=== PATIENT | male | born 1995 | race Hispanic/Latino ===

== ENCOUNTER 2018-03-05 01:24 | Emergency (ER) | payer SELFPAY ==
[2018-03-05] MEDS ORDERED: METHYLPREDNISOLONE 125 MG INJ ONE (01:38)
--- NOTE | 2018-03-05 02:45 | EDPHYS ---
Physician Documentation [facility] Name: Jenaro Smith Age: 22 yrs Sex: Male : 1995 Arrival Date: 03/05/2018 Time: 01:26 Bed 5 Private MD: ED Physician Douglas De Paz HPI: 03/05 02:23 This 22 yrs old Male presents to ER via Ambulatory with complaints of Rash. rn 02:23 The patient's rash thought to be caused by an unknown cause. The rash is located on the rn body diffusely. Onset: The symptoms/episode began/occurred today. Severity of symptoms: At their worst the symptoms were mild in the emergency department the symptoms are unchanged. The patient has experienced a previous episode. The patient has not recently seen a physician. Reports hives that popped up today, had similar symptoms a week ago, went away with benadryl, no new exposure to anything.. Historical: - Allergies: 01:36 No Known Allergies; ak1 - Home Meds: 01:36 None [Active]; ak1 - PMHx: 01:36 None; ak1 - PSHx: 01:36 None; ak1 - Immunization history:: Adult Immunizations unknown. - Social history:: Smoking status: unknown. - Ebola Screening: : No symptoms or risks identified at this time. - Family history:: not pertinent. - Hospitalizations: : No recent hospitalization is reported. ROS: 02:23 Constitutional: Negative for fever, chills, and weight loss, Eyes: Negative for injury, rn pain, redness, and discharge, Neck: Negative for injury, pain, and swelling, Cardiovascular: Negative for chest pain, palpitations, and edema, Respiratory: Negative for shortness of breath, cough, wheezing, and pleuritic chest pain, Abdomen/GI: Negative for abdominal pain, nausea, vomiting, diarrhea, and constipation, Back: Negative for injury and pain, MS/Extremity: Negative for injury and deformity, Skin: + hives Neuro: Negative for headache, weakness, numbness, tingling, and seizure. Exam: 02:23 Constitutional: This is a well developed, well nourished patient who is awake, alert, rn and in no acute distress. Head/Face: Normocephalic, atraumatic. Eyes: Pupils equal round and reactive to light, extra-ocular motions intact. Lids and lashes normal. Conjunctiva and sclera are non-icteric and not injected. Cornea within normal limits. Periorbital areas with no swelling, redness, or edema. ENT: No oral swelling or lesions Neck: Trachea midline, no thyromegaly or masses palpated, and no cervical lymphadenopathy. Supple, full range of motion without nuchal rigidity, or vertebral point tenderness. No Meningismus. Cardiovascular: Regular rate and rhythm with a normal S1 and S2. No gallops, murmurs, or rubs. Normal PMI, no JVD. No pulse deficits. Respiratory: Lungs have equal breath sounds bilaterally, clear to auscultation and percussion. No rales, rhonchi or wheezes noted. No increased work of breathing, no retractions or nasal flaring. Abdomen/GI: Soft, non-tender, with normal bowel sounds. No distension or tympany. No guarding or rebound. No evidence of tenderness throughout. Skin: + diffuse urticaria, no bullae, no desquamation MS/ Extremity: Pulses equal, no cyanosis. Neurovascular intact. Full, normal range of motion. Equal circumference. Neuro: Awake and alert, GCS 15, oriented to person, place, time, and situation. Cranial nerves II-XII grossly intact. Motor strength 5/5 in all extremities. Sensory grossly intact. Cerebellar exam normal. Normal gait. Vital Signs: 01:35 BP 172 / 88; Pulse 105; Resp 18; Temp 98.7(O); Pulse Ox 99% on R/A; Weight 58.97 kg ak1 (R); Height 5 ft. 9 in. (175.26 cm) (R); Pain 7/10; 02:45 BP 116 / 65; Pulse 74; Resp 18; Pulse Ox 99% on R/A; tl2 01:35 Body Mass Index 19.20 (58.97 kg, 175.26 cm) ak1 MDM: 01:30 Patient medically screened. rn 02:43 Differential diagnosis: allergic reaction. Data reviewed: vital signs, nurses notes, rn and as a result, I will discharge patient. Counseling: I had a detailed discussion with the patient and/or guardian regarding: the historical points, exam findings, and any diagnostic results supporting the discharge/admit diagnosis, the need for outpatient follow up, to return to the emergency department if symptoms worsen or persist or if there are any questions or concerns that arise at home. Response to treatment: the patient's symptoms have mildly improved after treatment, and as a result, I will discharge patient. Special discussion: I discussed with the patient/guardian in detail that at this point there is no indication for admission to the hospital. It is understood, however, that if the symptoms persist or worsen the patient needs to return immediately for re-evaluation. Administered Medications: 01:43 Drug: SOLU-Medrol 125 mg Route: IM; Site: right deltoid; tl2 02:45 Follow up: Response: No adverse reaction ak1 01:43 Not Given (Patient Refused; Pt has no ride home): Benadryl 50 mg IM once tl2 Disposition: 03/05/18 02:44 Discharged to Home. Impression: Urticaria, unspecified. - Condition is Stable. - Discharge Instructions: Hives. - Prescriptions for Prednisone 20 mg Oral Tablet - take 3 tablet by ORAL route once daily for 5 days; 15 tablet. - Medication Reconciliation Form, Thank You Letter, Antibiotic Education, Prescription Opioid Use form. - Follow up: Private Physician; When: As needed; Reason: Recheck today's complaints, Re-evaluation by your physician. - Problem is new. - Symptoms have improved. Signatures: Douglas De Paz MD MD rn Krenek, Amber, RN RN ak1 Asmita North RN RN tl2 Corrections: (The following items were deleted from the chart) 02:49 02:44 03/05/2018 02:44 Discharged to Home. Impression: Urticaria, unspecified. ak1 Condition is Stable. Forms are Medication Reconciliation Form, Thank You Letter, Antibiotic Education, Prescription Opioid Use. Follow up: Private Physician; When: As needed; Reason: Recheck today's complaints, Re-evaluation by your physician. Problem is new. Symptoms have improved. rn
--- NOTE | 2018-03-05 02:45 | ER ---
Nurse's Notes [facility] Name: Jenaro Smith Age: 22 yrs Sex: Male : 1995 Arrival Date: 03/05/2018 Time: 01:26 Bed 5 Private MD: Diagnosis: Urticaria, unspecified Presentation: 03/05 01:35 Presenting complaint: Patient states: rash and itching since midnight. hives noted to ak1 pt right AC, neck and left lower leg. Transition of care: patient was not received from another setting of care. Onset of symptoms was March 05, 2018. Risk Assessment: Do you want to hurt yourself or someone else? Patient reports no desire to harm self or others. Initial Sepsis Screen: Does the patient meet any 2 criteria? No. Patient's initial sepsis screen is negative. Does the patient have a suspected source of infection? No. Patient's initial sepsis screen is negative. Care prior to arrival: None. 01:35 Method Of Arrival: Ambulatory ak1 01:35 Acuity: CHARAN 4 ak1 Triage Assessment: 01:37 General: Appears uncomfortable, Behavior is calm, cooperative. Pain: Complains of pain ak1 in right AC, neck, left lower leg. EENT: No signs and/or symptoms were reported regarding the EENT system. Neuro: No deficits noted. Cardiovascular: No deficits noted. Respiratory: No deficits noted. GI: No signs and/or symptoms were reported involving the gastrointestinal system. : No signs and/or symptoms were reported regarding the genitourinary system. Derm: Rash noted that is itchy, papular, red, raised. Musculoskeletal: No signs and/or symptoms reported regarding the musculoskeletal system. Historical: - Allergies: 01:36 No Known Allergies; ak1 - Home Meds: 01:36 None [Active]; ak1 - PMHx: 01:36 None; ak1 - PSHx: 01:36 None; ak1 - Immunization history:: Adult Immunizations unknown. - Social history:: Smoking status: unknown. - Ebola Screening: : No symptoms or risks identified at this time. - Family history:: not pertinent. - Hospitalizations: : No recent hospitalization is reported. Screenin:37 Abuse screen: Denies threats or abuse. Denies injuries from another. Nutritional ak1 screening: No deficits noted. Tuberculosis screening: No symptoms or risk factors identified. Fall Risk None identified. Assessment: 02:44 Reassessment: Patient appears in no apparent distress at this time. No changes from ak1 previously documented assessment. see triage assessment. Vital Signs: 01:35 BP 172 / 88; Pulse 105; Resp 18; Temp 98.7(O); Pulse Ox 99% on R/A; Weight 58.97 kg ak1 (R); Height 5 ft. 9 in. (175.26 cm) (R); Pain 7/10; 02:45 BP 116 / 65; Pulse 74; Resp 18; Pulse Ox 99% on R/A; tl2 01:35 Body Mass Index 19.20 (58.97 kg, 175.26 cm) ak1 ED Course: 01:26 Patient arrived in ED. ds1 01:30 Douglas De Paz MD is Attending Physician. rn 01:35 Rebecca Caceres RN is Primary Nurse. ak1 01:35 Arm band placed on Patient placed in an exam room, on a stretcher, on pulse oximetry, ak1 Patient notified of wait time. 01:36 Triage completed. ak1 01:38 Patient has correct armband on for positive identification. Call light in reach. Side ak1 rails up X 1. Pulse ox on. NIBP on. 02:44 No provider procedures requiring assistance completed. Patient did not have IV access ak1 during this emergency room visit. Administered Medications: 01:43 Drug: SOLU-Medrol 125 mg Route: IM; Site: right deltoid; tl2 02:45 Follow up: Response: No adverse reaction ak1 01:43 Not Given (Patient Refused; Pt has no ride home): Benadryl 50 mg IM once tl2 Outcome: 02:44 Discharge ordered by . rn 02:45 Condition: good ak1 02:49 Discharged to home ambulatory. ak1 02:49 Discharge instructions given to patient, Instructed on discharge instructions, follow up and referral plans. no drinking with medication, no driving heavy equipment, medication usage, Demonstrated understanding of instructions, follow-up care, medications, Prescriptions given X 1. 02:49 Patient left the ED. ak1 Signatures: Keri Bonner ds1 Douglas De Paz MD MD rn Krenek, Amber, RN RN ak1 Asmita North RN RN tl2
== END 2018-03-05 02:49 | disposition home or self-care (01) ==
LOC: ER 01:24
DX: L50.9 Urticaria, unspecified (principal)
CPT/HCPCS: 96372; 99283; J2930

== ENCOUNTER 2019-01-20 23:01 | Emergency (ER) | payer SELFPAY ==
--- OUTSIDE RECORDS SUMMARY | 2019-01-20 23:03 | XMS REPORT ---
:1995 [facility] Address [address] [place] [address] [address] [place] [address] Care Team Providers Name Role Phone Unavailable Unavailable Unavailable Problems This patient has no known problems. Allergies, Adverse Reactions, Alerts This patient has no known allergies or adverse reactions. Medications This patient has no known medications.
[2019-01-20] MEDS ORDERED: METHYLPREDNISOLONE 125 MG INJ ONE (23:33)
[2019-01-20] MEDS ORDERED: DIPHENHYDRAMINE 50 MG/ML VIAL ONE (23:33)
--- NOTE | 2019-01-21 00:17 | ER ---
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 Transition of care: patient was not received from another setting of care. Onset: The symptoms/episode began/occurred acutely. Anaphylaxis evaluation, no signs or symptoms of anaphylaxis were noted. Onset of symptoms was January 20, 2019. Risk Assessment: Do you want to hurt yourself or someone else? Patient reports no desire to harm self or others. Initial Sepsis Screen: Does the patient meet any 2 criteria?. Care prior to arrival: None. 23:16 Method Of Arrival: Ambulatory ak1 23:16 Acuity: CHARAN 3 ak1 23:56 Initial Sepsis Screen: Does the patient have a suspected source of infection? No. mg2 Patient's initial sepsis screen is negative. Triage Assessment: 23:18 General: Appears uncomfortable, Behavior is calm, cooperative. ak1 Historical: - Allergies: 23:18 No Known Allergies; ak1 - Home Meds: 23:18 None [Active]; ak1 - PMHx: 23:18 None; ak1 - PSHx: 23:18 None; ak1 - Immunization history:: Adult Immunizations up to date. - Social history:: Smoking status: Patient/guardian denies using tobacco. - Ebola Screening: : No symptoms or risks identified at this time. Screenin:55 Abuse screen: Denies threats or abuse. Denies injuries from another. Nutritional mg2 screening: No deficits noted. Tuberculosis screening: No symptoms or risk factors identified. Fall Risk IV access (20 points). Assessment: 23:54 General: Appears in no apparent distress. comfortable, Behavior is calm, cooperative. mg2 Pain: Denies pain. Neuro: Level of Consciousness is awake, alert, obeys commands, Oriented to person, place, time, situation. Cardiovascular: Capillary refill < 3 seconds Patient's skin is warm and dry. Respiratory: Airway is patent Respiratory effort is even, unlabored, Breath sounds are clear bilaterally. in mediastinum, right upper lobe, left upper lobe, right middle lobe, left lower lobe and right lower lobe. GI: No signs and/or symptoms were reported involving the gastrointestinal system. : No signs and/or symptoms were reported regarding the genitourinary system. EENT: lip swelling. Derm: Skin is intact, is healthy with good turgor, Skin is pink, warm \T\ dry. normal, Rash noted that is itchy, red, raised, urticaria. Musculoskeletal: No signs and/or symptoms reported regarding the musculoskeletal system. 01/21 00:41 Reassessment: Patient states feeling better. Patient states symptoms have improved. mg2 Vital Signs: 01/20 23:18 BP 132 / 78; Pulse 117; Resp 20; Temp 97.6; Pulse Ox 97% on R/A; Weight 56.7 kg (R); ak1 Height 5 ft. 2 in. (157.48 cm) (R); Pain 8/10; 23:56 BP 123 / 85; Pulse 110; Resp 18; Pulse Ox 98% on R/A; Pain 0/10; mg2 01/21 00:41 BP 115 / 78; Pulse 75; Resp 17; Pulse Ox 100% on R/A; Pain 0/10; mg2 01/20 23:18 Body Mass Index 22.86 (56.70 kg, 157.48 cm) ak1 ED Course: 01/20 23:04 Patient arrived in ED. am2 23:15 Chris Colby MD is Attending Physician. pkl 23:17 Triage completed. ak1 23:18 Arm band placed on Patient placed in an exam room, Patient notified of wait time. ak1 23:23 Inserted saline lock: 22 gauge in left antecubital area, using aseptic technique. Blood jb5 collected. 23:37 Ismael Estrella, JAJA is Primary Nurse. mg2 23:55 Patient has correct armband on for positive identification. Pulse ox on. NIBP on. Door mg2 closed. 23:56 No provider procedures requiring assistance completed. mg2 01/21 00:42 IV discontinued, intact, bleeding controlled, No redness/swelling at site. Pressure mg2 dressing applied. Administered Medications: 01/20 23:25 Drug: SOLU-Medrol 125 mg Route: IVP; Site: left antecubital; ak1 01/21 00:41 Follow up: Response: No adverse reaction; Marked relief of symptoms mg2 01/20 23:25 Drug: Benadryl 50 mg Route: IVP; Site: left antecubital; ak1 01/21 00:41 Follow up: Response: No adverse reaction; Marked relief of symptoms mg2 Outcome: 00:16 Discharge ordered by . piper 00:42 Discharged to home ambulatory, with family. mg2 00:42 Condition: stable 00:42 Discharge instructions given to patient, family, Instructed on discharge instructions, follow up and referral plans. medication usage, Demonstrated understanding of instructions, follow-up care, medications, Prescriptions given X 1. 00:42 Patient left the ED. mg2 Signatures: Chris Colby MD MD pkl Rebecca Caceres, RN RN ak1 Idania Kay Amanda am2 Gardose, Michele, RN RN mg2
--- NOTE | 2019-01-21 00:17 | EDPHYS ---
Physician Documentation [facility] Name: Jenaro Smith Age: 23 yrs Sex: Male : 1995 Arrival Date: 01/20/2019 Time: 23:04 Bed 27 Private MD: ED Physician Chris Colby HPI: 01/20 23:27 This 23 yrs old Male presents to ER via Ambulatory with complaints of Allergic pkl Reaction, Lips Swelling, Headache, Runny Nose, Fever. 23:27 The patient presents with itching, rash, that is diffuse, swelling of the lips. Onset: pkl The symptoms/episode began/occurred just prior to arrival, 1 hour(s) ago. Associated signs and symptoms: Pertinent positives: hives. Historical: - Allergies: 23:18 No Known Allergies; ak1 - Home Meds: 23:18 None [Active]; ak1 - PMHx: 23:18 None; ak1 - PSHx: 23:18 None; ak1 - Immunization history:: Adult Immunizations up to date. - Social history:: Smoking status: Patient/guardian denies using tobacco. - Ebola Screening: : No symptoms or risks identified at this time. ROS: 23:27 Eyes: Negative for injury, pain, redness, and discharge. pkl 23:27 ENT: Positive for swollen lips. 23:27 Neck: Negative for stiffness. 23:27 Cardiovascular: Negative for chest pain. 23:27 Respiratory: Negative for shortness of breath. 23:27 Abdomen/GI: Negative for abdominal pain, nausea, vomiting, and diarrhea. 23:27 Back: Negative for acute changes. 23:27 : Negative for urinary symptoms. 23:27 MS/extremity: Negative for acute changes. 23:27 Skin: Positive for rash, diffusely. 23:27 Neuro: Negative for altered mental status. Exam: 23:27 Head/Face: Normocephalic, atraumatic. Eyes: Pupils equal round and reactive to light, pkl extra-ocular motions intact. Lids and lashes normal. Conjunctiva and sclera are non-icteric and not injected. Cornea within normal limits. Periorbital areas with no swelling, redness, or edema. 23:27 ENT: Mouth: Lips: swollen. 23:27 Neck: Exam negative for nuchal rigidity. 23:27 Chest/axilla: Exam negative for acute changes. 23:27 Cardiovascular: Rate: tachycardic, actual rate is 112 bpm, Rhythm: regular. 23:27 Respiratory: the patient does not display signs of respiratory distress, Respirations: normal, Breath sounds: are clear throughout. 23:27 Abdomen/GI: Bowel sounds: normal, Palpation: abdomen is soft and non-tender, in all quadrants. 23:27 Back: Exam negative for acute changes. 23:27 : Exam negative for acute changes. 23:27 Musculoskeletal/extremity: Exam is negative for acute changes. 23:27 Skin: urticaria, and is diffusely located. 23:27 Neuro: Orientation: is normal, Mentation: is normal, Cranial nerves: grossly normal, Motor: is normal. Vital Signs: 23:18 BP 132 / 78; Pulse 117; Resp 20; Temp 97.6; Pulse Ox 97% on R/A; Weight 56.7 kg (R); ak1 Height 5 ft. 2 in. (157.48 cm) (R); Pain 8/10; 23:56 BP 123 / 85; Pulse 110; Resp 18; Pulse Ox 98% on R/A; Pain 0/10; mg2 04 00:41 BP 115 / 78; Pulse 75; Resp 17; Pulse Ox 100% on R/A; Pain 0/10; mg2 04 23:18 Body Mass Index 22.86 (56.70 kg, 157.48 cm) ak1 MDM: 01/20 23:15 Patient medically screened. pkl 01/21 00:15 Data reviewed: vital signs, nurses notes. pkl 01/20 23:19 Order name: Saline Lock; Complete Time: 23:25 pkl Administered Medications: 01/20 23:25 Drug: SOLU-Medrol 125 mg Route: IVP; Site: left antecubital; ak1 01/21 00:41 Follow up: Response: No adverse reaction; Marked relief of symptoms mg2 01/20 23:25 Drug: Benadryl 50 mg Route: IVP; Site: left antecubital; ak1 01/21 00:41 Follow up: Response: No adverse reaction; Marked relief of symptoms mg2 Disposition: 01/21/19 00:16 Discharged to Home. Impression: Acute allergic reaction. - Condition is Stable. - Medication Reconciliation Form, Thank You Letter, Antibiotic Education, Prescription Opioid Use form. - Follow up: Private Physician; When: 2 - 3 days; Reason: Re-evaluation by your physician. - Problem is new. - Symptoms have improved. Signatures: Chris Colby MD MD pkl Rebecca Caceres, RN RN ak1 Ismael Estrella RN RN mg2 Corrections: (The following items were deleted from the chart) 00:42 00:16 01/21/2019 00:16 Discharged to Home. Impression: Acute allergic reaction. mg2 Condition is Stable. Forms are Medication Reconciliation Form, Thank You Letter, Antibiotic Education, Prescription Opioid Use. Follow up: Private Physician; When: 2 - 3 days; Reason: Re-evaluation by your physician. Problem is new. Symptoms have improved. pkl
== END 2019-01-21 00:42 | disposition home or self-care (01) ==
LOC: ER 23:01
DX: T78.40XA Allergy, unspecified, initial encounter (principal); R21 Rash and other nonspecific skin eruption; L29.9 Pruritus, unspecified
CPT/HCPCS: 96374; 96375; 99284; J2930

== ENCOUNTER 2025-02-03 03:33 | Emergency (ER) | payer SELFPAY ==
--- OUTSIDE RECORDS SUMMARY | 2025-02-03 03:38 | XMS REPORT | Continuity of Care Document ---
Author Name Unknown Address [address] [facility] [address] [place] [address] Organization [facility] Address [address] [facility] [address] [place] [address] Care Team Providers Care Segment Producer Name Role Phone Pcp, Patient Does Not Have A Primary Care Physic jose ramon DONALD WONG Attending Clinician Unavailable DONALD WONG Attending Clinician Unavailable Donald Aaron Attending Clinician [phone] HEATHER PETERS Attending Clinician Unavailable HEATHER PETERS Attending Clinician Unavailable GLORIA CARROLL Attending Clinician Unavailab GLORIA Marie Attending Clinician Unavailab SHANNEN Valles Attending Clinician Unavailable Shannen Reyes MD Attending Clinician [phone] LISA SIMMS Attending Clinician Unavailab Lisa Cadena DO Attending Clinician [phone] ALFRED BURGER Attending Clinician Unavaila Alfred Reeves Attending Clinician [phone] Lab, Adc Fam Pob I Attending Clinician Unavailab Pita Garcia Attending Clinician [phone] PITA CATES Attending Clinician Unavailable Doctor Unassigned, [place] Attending Clinician U navailable HEATHER PETERS Admitting Clinician Unavailable SHANNEN REYES Admitting Clinician Unavailable ALFRDE BURGER Admitting Clinician Unavaila ble Payers Payer Name Policy Type Policy Number Effective Date Expirati on Date Source MEDICAID ALIEN PENDING PENDING 1998 00:00:00 1998 00:00:00 Problems Condition Name Condition Details Condition Category Status Onset Date Resolution Date Last Treatment Date Treating Clinician Comments Source No known active problems No known active problems Disease [facility] Allergies, Adverse Reactions, Alerts Allergy Name Allergy Type Status Severity Reaction(s) Onset Date Inactive Date Treating Clinician Comments Source NO KNOWN ALLERGIE S Drug Class Active [facility] Social History Social Habit Start Date Stop Date Quantity Comments Source Sexual orientation U [facility] Exposure to SARS-CoV-2 (event) 2022-11-14 00:00:00 2022-11-24 02:03:00 Unable to assess [facility] Sex assigned at 1995 00:00:00 1995 00:00:00 [facility] Smoking Status Start Date Stop Date Source Tobacco smoking consumption unknown [facility] Medications Ordered Medication Name Filled Medication Name Start Date Stop Date Current Medication? Ordering Clinician Indication Dosage Frequency Signature (SIG) Comments Components Source famotidine (PEPCID AC) tablet 20 mg 12-06 07:00: 00 12-06 07:19 :00 No 20mg 20 mg, Oral, ONCE, 1 dose, On 12/06/24 at 0100, [facility] predniSONE (DELTASONE) tablet 50 mg 12-06 07:00: 00 12-06 07:19 :00 No 50mg 50 mg, Oral, ONCE, 1 dose, On 12/06/24 at 0100, [facility] diphenhydrA MINE (BENADRYL) tablet 50 mg 12-06 07:00: 00 12-06 07:19 :00 No 50mg 50 mg, Oral, ONCE, 1 dose, On 12/06/24 at 0100, [facility] predniSONE 50 mg tablet 12-06 00:00: 00 12-11 05:59 :00 Yes [id number] 50mg Take 1 tablet by mouth in the morning for 4 days. [facility] ibuprofen 800 mg tablet 03-29 00:00: 00 Yes [id number] 800mg Take 1 tablet by mouth every 8 (eight) hours as needed for Pain (scale 4-6). [facility] NaCl 0.9% (NS) IV infusion 500 mL 01-06 12:00: 00 Yes 500mL at 999 mL/hr, Intravenou s, CONTINUOUS , Starting on Sat01/07/24 at 0700, Until Discontinu ed, Routine [facility] iopamidol (ISOVUE 370-500 mL) injection 100 mL 01-06 12:00: 00 01-06 12:00 :00 No [id number] 100mL 100 mL, Intravenou s, ONCE, 1 dose, On Sat01/07/24 at 0700, Routine [facility] NaCl 0.9% (NS) IV infusion 1,000 mL 01-06 10:45: 00 Yes 1000mL at 999 mL/hr, Intravenou s, CONTINUOUS , Starting on Sat01/07/24 at 0545, Until Discontinu ed, Routine [facility] ketorolac (TORADOL) injection 30 mg 01-06 10:45: 00 01-06 09:51 :00 No 30mg 30 mg, Slow IV Push, ONCE, 1 dose, On Sat01/07/24 at 0545, Routine [facility] ondansetron (ZOFRAN (PF)) injection 4 mg 01-06 09:45: 00 01-06 09:52 :00 No 4mg 4 mg, Slow IV Push, ONCE, 1 dose, On Sat01/07/24 at 0445, SUSHMA [facility] amoxicillin -clavulanat e 875-125 mg per tablet 01-06 00:00: 00 Yes [id number] 1{tbl} Take 1 tablet by mouth every 12 (twelve) hours. [facility] ibuprofen 800 mg tablet 01-06 00:00: 00 Yes [id number] 800mg Take 1 tablet by mouth every 8 (eight) hours as needed for Temp > 38.5 C or Pain (scale 4-6). [facility] NaCl 0.9% (NS) IV infusion 1,000 mL 01-04 18:30: 00 Yes 1000mL at 999 mL/hr, Intravenou s, CONTINUOUS , Starting on 01/05/24 at 1330, Until Discontinu ed, Routine [facility] acetaminoph en (TYLENOL) tablet 1,000 mg 01-04 18:30: 00 01-04 17:39 :00 No 1000mg 1,000 mg, Oral, ONCE, 1 dose, On 01/05/24 at 1330, Routine [facility] iopamidol (ISOVUE 370-500 mL) injection 65 mL 2022-10 07:15: 00 08-17 07:15 :00 No [id number] 65mL 65 mL, Intravenou s, ONCE, 1 dose, On 08/17/23 at 0115, Routine [facility] dicyclomine 20 mg tablet 11-24 00:00: 00 Yes [id number] 20mg Take 1 tablet by mouth 4 (four) times daily. [facility] docusate sodium 250 mg capsule 11-24 00:00: 00 Yes [id number] 250mg Take 1 capsule by mouth in the morning. [facility] clotrimazol e (LOTRIMIN AF, CLOTRIMAZOL E,) 1 % topical cream 11-24 00:00: 00 Yes [id number] Apply to area(s) at bedtime. [facility] polyethylen e glycol 3350 (MIRALAX) 17 gram powder 11-24 00:00: 00 Yes [id number] 1{packe t} Take 1 Packet by mouth every 24 (twenty-fo ur) hours as needed for Constipati on. [facility] ondansetron 4 mg disintegrat ing tablet 11-24 00:00: 00 Yes [id number] 4mg Take 1 tablet by mouth every 4 (four) hours as needed for Nausea and Vomiting (N/V). [facility] NaCl 0.9% (NS) bolus infusion 1,000 mL 04-19 20:00: 00 04-19 19:51 :00 No 1000mL at 999 mL/hr, 1,000 mL, IV Infusion, ONCE, 1 dose, On Sat04/19/22 at 1500, SUSHMA [facility] ibuprofen (IBU) tablet 600 mg 04-19 19:15: 00 04-19 19:16 :00 No 600mg 600 mg, Oral, ONCE, 1 dose, On Sat04/19/22 at 1415, SUSHMA [facility] iopamidol (ISOVUE 370-500 mL) injection 100 mL 12-13 08:00: 00 12-13 06:45 :00 No [id number] 100mL 100 mL, Intravenou s, ONCE, 1 dose, On Sat12/13/21 at 0200, Routine [facility] dexamethaso ne (DECADRON PHOSPHATE) injection 10 mg 12-13 07:00: 00 12-13 06:19 :00 No 10mg 10 mg, Oral, ONCE, 1 dose, On Sat12/13/21 at 0100, Routine [facility] ketorolac (TORADOL) injection 30 mg 12-13 07:00: 00 12-13 06:19 :00 No 30mg 30 mg, Slow IV Push, ONCE, 1 dose, On Sat12/13/21 at 0100, Routine
pricing/signage team member approving Restricted medication : ALFRED BURGER [facility] maalox:diph enhydrAMINE :lidocaine 2 % viscous 1:1:1 (FIRST-MOUT HWASH BLM) oral suspension 15 mL 12-13 07:00: 00 12-13 06:19 :00 No 15mL 15 mL, Oral, ONCE, 1 dose, On Sat12/13/21 at 0100, Routine [facility] ibuprofen 800 mg tablet 2022-0 3-09 00:00: 00 Yes [id number] 800mg Take 1 tablet by mouth every 6 (six) hours as needed for Pain (scale 4-6). [facility] No known medications No Un derek [facility] No known medications No Un derek [facility] Vital Signs Vital Name Observation Time Observation Value Comments S alannah Systolic blood pressure 2024-12-06 08:00:00 123 mm[Hg] [facility] Diastolic blood pressure 2024-12-06 08:00:00 78 mm[Hg] [facility] Heart rate 2024-12-06 08:00:00 82 /min Un[facility] Respiratory rate 2024-12-06 08:00:00 16 /min [facility] Oxygen saturation in Arterial blood by Pulse oximetry 2024-12-06 08:00:00 97 /min [facility] Body temperature 2024-12-06 06:41:00 36.72 Brooke [facility] Body height 2024-12-06 06:41:00 160 cm [facility] Body weight 2024-12-06 06:41:00 61.236 kg [facility] BMI 2024-12-06 06:41:00 23.91 kg/m2 [facility] Systolic blood pressure 2024-03-30 05:10:00 113 mm[Hg] [facility] Diastolic blood pressure 2024-03-30 05:10:00 76 mm[Hg] [facility] Heart rate 2024-03-30 05:10:00 77 /min Un[facility] Body temperature 2024-03-30 05:10:00 37 Brooke [facility] Respiratory rate 2024-03-30 05:10:00 16 /min [facility] Oxygen saturation in Arterial blood by Pulse oximetry 2024-03-30 05:10:00 100 /min [facility] Body height 2024-03-30 02:38:00 177.8 cm [facility] Body weight 2024-03-30 02:38:00 61.236 kg [facility] BMI 2024-03-30 02:38:00 19.37 kg/m2 [facility] Systolic blood pressure 2024-01-07 13:00:00 112 mm[Hg] [facility] Diastolic blood pressure 2024-01-07 13:00:00 74 mm[Hg] [facility] Heart rate 2024-01-07 13:00:00 83 /min Un[facility] Respiratory rate 2024-01-07 13:00:00 13 /min [facility] Oxygen saturation in Arterial blood by Pulse oximetry 2024-01-07 13:00:00 95 /min [facility] Body temperature 2024-01-07 10:45:00 37.17 Brooke [facility] Body height 2024-01-07 09:15:00 160 cm [facility] Body weight 2024-01-07 09:15:00 61.508 kg [facility] BMI 2024-01-07 09:15:00 24.02 kg/m2 [facility] Systolic blood pressure 2024-01-05 18:51:04 118 mm[Hg] [facility] Diastolic blood pressure 2024-01-05 18:51:04 88 mm[Hg] [facility] Heart rate 2024-01-05 18:51:04 108 /[facility] Body temperature 2024-01-05 18:51:04 38.11 Brooke [facility] Respiratory rate 2024-01-05 18:51:04 16 /min [facility] Oxygen saturation in Arterial blood by Pulse oximetry 2024-01-05 18:51:04 100 /min [facility] Body height 2024-01-05 17:00:00 160 cm [facility] Body weight 2024-01-05 17:00:00 56.7 kg [facility] BMI 2024-01-05 17:00:00 22.14 kg/m2 [facility] Systolic blood pressure 2023-08-17 07:00:00 119 mm[Hg] [facility] Diastolic blood pressure 2023-08-17 07:00:00 79 mm[Hg] [facility] Heart rate 2023-08-17 07:00:00 98 /min Un[facility] Respiratory rate 2023-08-17 07:00:00 16 /min [facility] Oxygen saturation in Arterial blood by Pulse oximetry 2023-08-17 07:00:00 99 /min [facility] Body temperature 2023-08-17 04:56:00 36.61 Brooke [facility] Body height 2023-08-17 04:56:00 160 cm [facility] Body weight 2023-08-17 04:56:00 58.968 kg [facility] BMI 2023-08-17 04:56:00 23.03 kg/m2 [facility] Oxygen saturation in Arterial blood by Pulse oximetry 2022-11-24 09:00:00 99 /min [facility] Systolic blood pressure 2022-11-24 08:15:00 133 mm[Hg] [facility] Diastolic blood pressure 2022-11-24 08:15:00 92 mm[Hg] [facility] Heart rate 2022-11-24 08:15:00 112 /min [facility] Body temperature 2022-11-24 08:15:00 36.5 Brooke [facility] Respiratory rate 2022-11-24 08:15:00 20 /min [facility] Body height 2022-11-24 08:15:00 165.1 cm [facility] Body weight 2022-11-24 08:15:00 57.607 kg [facility] BMI 2022-11-24 08:15:00 21.13 kg/m2 [facility] Heart rate 2022-04-19 19:00:00 135 /min [facility] Body temperature 2022-04-19 19:00:00 39.67 Brooke [facility] Oxygen saturation in Arterial blood by Pulse oximetry 2022-04-19 19:00:00 100 /min [facility] Systolic blood pressure 2022-04-19 18:37:00 136 mm[Hg] [facility] Diastolic blood pressure 2022-04-19 18:37:00 77 mm[Hg] [facility] Respiratory rate 2022-04-19 18:37:00 18 /min [facility] Body height 2022-04-19 18:37:00 165.1 cm [facility] Body weight 2022-04-19 18:37:00 63.504 kg [facility] BMI 2022-04-19 18:37:00 23.30 kg/m2 [facility] Systolic blood pressure 2021-12-13 07:43:00 114 mm[Hg] [facility] Diastolic blood pressure 2021-12-13 07:43:00 80 mm[Hg] [facility] Heart rate 2021-12-13 07:43:00 102 /min [facility] Respiratory rate 2021-12-13 07:43:00 16 /min [facility] Oxygen saturation in Arterial blood by Pulse oximetry 2021-12-13 07:43:00 99 /min [facility] Body temperature 2021-12-13 05:39:00 36.33 Brooke [facility] Body height 2021-12-13 05:39:00 165.1 cm [facility] Body weight 2021-12-13 05:39:00 54.432 kg [facility] BMI 2021-12-13 05:39:00 19.97 kg/m2 [facility] Procedures Procedure Date / Time Performed Performing Clinician Source LIPASE 2024-03-30 03:18:00 Heather Peters [facility] TROPONIN I 2024-03-30 03:18:00 Heather Peters [facility] COMP. METABOLIC PANEL ([id number]) 2024-03-30 03:18:00 Heather Peters [facility] CBC WITH DIFF 2024-03-30 03:18:00 Heather Peters [facility] XR CHEST 1 VW 2024-03-30 03:10:[address] [facility] [address] ABDOMEN PELVIS W CONTRAST 2024-01-07 11:12:29 Heather Peters [facility] XR CHEST 1 VW 2024-01-07 10:01:23 Heather Peters [facility] BLOOD CULTURE SCREEN 2024-01-07 09:49:00 Geeta Peters i [facility] EBV-MONONUCLEOSIS SCREEN 2024-01-07 09:49:00 Heather Peters [facility] RAPID STREP SCREEN FOR GROUP A 2024-01-07 09:49:00 Heather Peters [facility] RAPID INFLUENZA A/B 2024-01-07 09:49:00 Heather Peters [facility] COVID-19 (ID NOW RAPID TESTING) 2024-01-07 09:49:00 Heather Peters [facility] LACTIC ACID WHOLE BLOOD 2024-01-07 09:48:00 Shelli Peters [facility] URINALYSIS 2024-01-07 09:44:00 Heather Peters [facility] BLOOD CULTURE SCREEN 2024-01-07 09:43:00 Geeta Peters i [facility] COMP. METABOLIC PANEL ([id number]) 2024-01-07 09:43:00 Heather Peters [facility] CBC WITH DIFF 2024-01-07 09:43:00 Heather [facility] BASIC METABOLIC PANEL (NA, K, CL, CO2, GLUCOSE, BUN, CREATININE, CA) 2024-01-05 17:35:00 Heather Peters [facility] CBC WITH DIFF 2024-01-05 17:35:00 Heather [facility] RAPID INFLUENZA A/B 2024-01-05 17:35:00 Heather Peters [facility] COVID-19 (ID NOW RAPID TESTING) 2024-01-05 17:35:00 Heather Peters [facility] CT ABDOMEN PELVIS W CONTRAST 2023-08-17 06:22:41 Gloria Carroll [facility] LIPASE 2023-08-17 05:55:00 Gloria Carroll Un [facility] COMP. METABOLIC PANEL ([id number]) 2023-08-17 05:55:00 Gloria Carroll [facility] CBC WITH DIFF 2023-08-17 05:55:00 Gloria Carroll U [facility] PROTHROMBIN TIME / INR 2023-08-17 05:55:00 Gloria Carroll [facility] ACTIVATED PARTIAL THRMPLAS PIYUSH 2023-08-17 05:55:00 Gloria Carroll [facility] URINALYSIS 2023-08-17 05:55:00 Gloria Carroll [facility] NOTICE OF PRIVACY PRACTICES 2023-08-17 04:34:51 Doctor Unassigned, [place] [facility] CONSENT/REFUSAL FOR DIAGNOSIS AND TREATMENT 2023-08-17 04:29:57 Doctor Unassigned, [place] [facility] XR ABDOMEN ACUTE SERIES 2022-11-24 08:47:42 Do galo Reyes [facility] URINALYSIS 2022-11-24 08:25:00 [facility] LIPASE 2022-11-24 08:23:00 Shannen Reyes [facility] COMP. METABOLIC PANEL ([id number]) 2022-11-24 08:23:00 Shannen Reyes [facility] CBC WITH DIFF 2022-11-24 08:23:00 Shannen Reyes [facility] NOTICE OF PRIVACY PRACTICES 2022-11-24 08:05:53 Doctor Unassigned, [place] [facility] CONSENT/REFUSAL FOR DIAGNOSIS AND TREATMENT 2022-11-24 08:05:19 Doctor Unassigned, [place] [facility] COVID-19 (ID NOW RAPID TESTING) 2022-04-19 18:45:00 Lisa Simms [facility] CONSENT/REFUSAL FOR DIAGNOSIS AND TREATMENT 2022-04-19 18:31:11 Doctor Unassigned, [place] [facility] CT SOFT TISSUE NECK W CONTRAST 2021-12-13 06:46:00 Alfred Burger [facility] RAPID STREP SCREEN FOR GROUP A 2021-12-13 06:19:00 Alfred Burger [facility] BASIC METABOLIC PANEL (NA, K, CL, CO2, GLUCOSE, BUN, CREATININE, CA) 2021-12-13 06:18:00 Alfred Burger [facility] CBC WITH DIFF 2021-12-13 06:18:00 Alfred Burger [facility] EBV-MONONUCLEOSIS SCREEN 2021-12-13 06:18:00 Alfred Burger [facility] NOTICE OF PRIVACY PRACTICES 2021-12-13 05:30:00 Doctor Unassigned, [place] [facility] CONSENT/REFUSAL FOR DIAGNOSIS AND TREATMENT 2021-12-13 05:29:37 Doctor Unassigned, [place] [facility] Encounters Start Date/Time End Date/Time Encounter Type Admission Type Attending [facility] Care Facility Care Department Encounter ID Source 2024-12-06 00:53:00 2024-12-06 02:30:00 Emergency DONALD CRISTOBAL ERICCA [facility] ERT [id number] [facility] 2024-12-06 00:53:00 2024-12-06 02:30:00 Emergency Donald Wong [facility] 1..840.114 350.1.13.10 4.2.7.2.686 [id number] [facility] 2024-03-29 21:42:00 2024-03-30 00:18:00 Emergency X HEATHER PETERS WAKILI [facility] ERT [id number] [facility] 2024-03-29 21:42:00 2024-03-30 00:18:00 Emergency Heather Peters [facility] 1..840.114 350.1.13.10 4.2.7.2.686 [id number] [facility] 2024-01-07 04:19:00 2024-01-07 08:09:00 Emergency X HEATHER PETERS WAKILI [facility] ERT [id number] [facility] 2024-01-07 04:19:00 2024-01-07 08:09:00 Emergency Heather Peters [facility] 1.2.840.114 350.1.13.10 4.2.7.2.686 [id number] [facility] 2024-01-05 12:02:00 2024-01-05 14:31:00 Emergency X HEATHER PETERS WAKILI [facility] ERT [id number] [facility] 2024-01-05 12:02:00 2024-01-05 14:31:00 Emergency Heather Peters [facility] 1.2.840.114 350.1.13.10 4.2.7.2.686 [id number] [facility] 2023-08-16 23:01:00 2023-08-17 01:23:00 Emergency X GLORIA CARROLL LYNDA [facility] ERT [id number] [facility] 2023-08-16 23:01:00 2023-08-17 01:23:00 Emergency Gloria Carroll [facility] 1.2.840.114 350.1.13.10 4.2.7.2.686 [id number] [facility] 2022-11-24 02:07:00 2022-11-24 03:35:00 Emergency X SHANNEN REYES [facility] ERT [id number] [facility] 2022-11-24 02:07:00 2022-11-24 03:35:00 Emergency Shannen Reyes [facility] 1.2.840.114 350.1.13.10 4.2.7.2.686 [id number] [facility] 2022-04-19 13:43:00 2022-04-19 14:52:00 Emergency X LISA SIMMS [facility] ERT [id number] [facility] 2022-04-19 13:43:00 2022-04-19 14:52:00 Emergency Lisa Simms [facility] 1.20.114 350.1.13.10 4.2.7.2.686 [id number] [facility] 2021-12-12 23:43:00 2021-12-13 01:47:00 Emergency X ALFRED BURGER [facility] ERT [id number] [facility] 2021-12-12 23:43:00 2021-12-13 01:47:00 Emergency Alfred Burger F [facility] 1.0.114 350.1.13.10 4.2.7.2.686 [id number] [facility] 2020-10-12 17:10:50 2020-10-12 17:30:50 Laboratory Only Lab, Adc Fam Pob I Pita Cates [facility] [address] 1..114 350.1.13.10 4.2.7.2.686 [id number] [facility] 2020-10-12 17:20:00 2020-10-12 17:20:00 Outpatient R PITA CATES [facility] [id number] [facility] 2020-10-12 00:00:00 2020-10-12 00:00:00 Letter (Out) Doctor Unassigned, [place] [facility] 1..114 350.1.13.10 4.2.7.2.686 [id number] [facility] 2020-10-12 00:00:00 2020-10-12 00:00:00 Letter (Out) Doctor Unassigned, [place] [facility] 1.0114 350.1.13.10 4.2.7.2.686 [id number] [facility] Results Test Description Test Time Test Comments Results Result Co mments Source [facility] ([id number][facility]2024-03-30 04:01:24* Test Item Value Reference Range Interpretation Comme nts NA (test code = 4517310753) 140 mmol/L 135-145 K (test code = 4678897469) 4.0 mmol/L 3.5-5.0 CL (test code = 7899873573) 105 mmol/L 98-108 CO2 TOTAL (test code = 8229786897) 27 mmol/L 23-31 AGAP (test code = 2353985863) 8 2-16 BUN (test code = 0704927746) 16 mg/dL 7-23 GLUCOSE (test code = 1331971910) 92 mg/dL 70-110 CREATININE (test code = 2160-0) 0.77 mg/dL 0.60-1.25 TOTAL BILI (test code = 0287276294) 0.4 mg/dL 0.1-1.1 CALCIUM (test code = 6844740242) 9.0 mg/dL 8.6-10.6 T PROTEIN (test code = 0375626380) 8.0 g/dL 6.3-8.2 ALBUMIN (test code = 1501716335) 4.5 g/dL 3.5-5.0 ALK PHOS (test code = 0136622053) 105 U/L 34-122 ALTv (test code = 1742-6) 71 U/L 5-50 H AST(SGOT) (test code = 2328989614) 47 U/L 13-40 H eGFR (test code = 01464-1) 125.8 mL/min/1.73m2 CKD-EPI eGFR (2020). Assuming creatinine has been stable day-to-day for at least three months, the eGFR indicates Category G1 (>= 90 mL/min/1.73 m2) Lab Interpretation (test code = 82259-6) [facility]* Test Item Value Reference Range Interpretation Comme nts LIPASE (test code = 3682845851) 85 U/L 0-220 Lab Interpretation (test cod e = 77232-4) Normal [facility] with [id number] 03:46:06* Test Item Value Reference Range Interpretation Comme nts WBC (test code = 6690-2) 6.31 4.20-10.70 RBC (test code = 789-8) 4.95 4.26-5.52 HGB (test code = 718-7) 13.7 g/dL 12.2-16.4 HCT (test code = 4544-3) 41.9 % 38.4-49.3 MCV (test code = 787-2) 84.6 fL 81.7-95.6 MCH (test code = 785-6) 27.7 pg 26.1-32.7 MCHC (test code = 786-4) 32.7 g/dL 31.2-35.0 RDW-SD (test code = 16650-3) 40.7 fL 38.5-51.6 RDW-CV (test code = 788-0) 13.2 % 12.1-15.4 PLT (test code = 777-3) 220 150-328 MPV (test code = 35456-6) 10.5 fL 9.8-13.0 NRBC/100 WBC (test code = 9797431064) 0.0 0.0-10.0 NRBC x10^3 (test code = 3693794254) See_Comment [Automated messa ge] The system which generated this result transmitted reference range: 10*3/?L. The reference range was not used to interpret this result as normal/abnormal. GRAN MAT (NEUT) % (test code = 770-8) 41.5 % IMM GRAN % (test code = 7061518534) 0.20 % LYMPH % (test code = 736-9) 37.7 % MONO % (test code = 5905-5) 9.5 % EOS % (test code = 713-8) 10.5 % BASO % (test code = 706-2) 0.6 % GRAN MAT x10^3(ANC) (test code = 2212071230) 2.62 10*3/uL 1.99-6.95 IMM GRAN x10^3 (test code = 3937224624) 0.00-0.06 LYMPH x10^3 (test code = 731-0) 2.38 10*3/uL 1.09-3.23 MONO x10^3 (test code = 742-7) 0.60 10*3/uL 0.36-1.02 EOS x10^3 (test code = 711-2) 0.66 10*3/uL 0.06-0.53 H BASO x10^3 (test code = 704-7) 0.04 10*3/uL 0.01-0.09 Lab Interpretation (test code = 20806-3) [facility] [id number] 03:44:25CHEST SINGLE VIEW CLINICAL HISTORY: chest pain ORDERING PHYSICIAN: HEATHER PETERS TECHNIQUE: Frontal view of chest COMPARISON: ?XR CHEST 1 VW on 01/07/2024 FINDINGS: <<Blank Value>> Thecardiac silhouette is within normal limits. ?Lungs are clear. Osseous structures are normal.[facility] [id number] 12:50:59EXAM: CT ABDOMEN PELVIS W CONTRAST CLINICAL HISTORY: LLQ abdominal pain ORDERING PHYSICIAN: HEATHER PETERS COMPARISON: CT from August 17, 2023. TECHNIQUE: ?Multiple axial CT images of the abdomen and pelvis withnonionic intravenous contrast. ? ?Multiplanar reformations also obtainedand interpreted. ?Study was performed using ALARA principle. FINDINGS: Lower thorax: Trace left pleural effusion is evident. Mild infiltrate isevident in the left lower lobe and lingula. Peritoneum: No pneumoperitoneum is delineated. Hepatobiliary: No enhancing hepatic mass is evident. Portal vein is patent.Gallbladder is contracted. Spleen: Preserved. Pancreas: No inflammatory changes or pseudocyst. Adrenals:Normal size Kidneys: No hydronephrosis. No enhancing kidney mass. Bowel: Appendix is normal. Rectum with mild thickening and mild adjacentstranding. No bowel dilatation is manifested. No abdominal adenopathy is evident. Abdominal aorta is normal in caliber. Pelvis: No free pelvic fluid is detected.Urinary bladder is grosslyintact. No inguinal adenopathy is evident.[facility] [id number] 10:47:11ORDERING PHYSICIAN: TUNDE PETERS CLINICAL HISTORY: Fever TECHNIQUE: Frontal view of chest COMPARISON: None available. FINDINGS: The cardiac silhouette is within normal limits. ?Lungs are clear. Osseous structures are normal.[facility] HospitalEBV- Mononucleosis [id number] 10:16:35* Test Item Value Reference Range Interpretation Comme nts EBV Mononucleosis Screen (te st code = 3584399848) Negative Negative Lab Interpretation (test cod e = 93510-3) Normal [facility]. Metabolic Panel (02140)2024-01-07 10:13:16* Test Item Value Reference Range Interpretation Comme nts NA (test code = 5250588567) 131 mmol/L 135-145 L K (test code = 8194180647) 3.9 mmol/L 3.5-5.0 CL (test code = 5892331760) 100 mmol/L 98-108 CO2 TOTAL (test code = 7129020685) 24 mmol/L 23-31 AGAP (test code = 1317495321) 7 2-16 BUN (test code = 8494746686) 9 mg/dL 7-23 GLUCOSE (test code = 0927944271) 116 mg/dL 70-110 H CREATININE (test code = 2160-0) 0.72 mg/dL 0.60-1.25 TOTAL BILI (test code = 2896919862) 0.6 mg/dL 0.1-1.1 CALCIUM (test code = 9718156364) 8.9 mg/dL 8.6-10.6 T PROTEIN (test code = 4829221469) 8.2 g/dL 6.3-8.2 ALBUMIN (test code = 0393036885) 4.2 g/dL 3.5-5.0 ALK PHOS (test code = 4596293657) 134 U/L 34-122 H ALTv (test code = 1742-6) 69 U/L 5-50 H AST(SGOT) (test code = 2453950979) 70 U/L 13-40 H eGFR (test code = 28014-7) 128.4 mL/min/1.73m2 CKD-EPI eGFR (2020). Assuming creatinine has been stable day-to-day for at least three months, the eGFR indicates Category G1 (>= 90 mL/min/1.73 m2) Lab Interpretation (test code = 54353-7) Abnormal [facility] HospitalLactic Acid Whole [id number] 10:06:45* Test Item Value Reference Range Interpretation Comme nts LACTIC ACID (test code = 0787088330) 0.98 mmol/L 0.50-2.20 Lab Interpretation (test cod e = 85492-2) Normal [facility] with [id number] 10:00:14* Test Item Value Reference Range Interpretation Comme nts WBC (test code = 6690-2) 5.75 4.20-10.70 RBC (test code = 789-8) 4.83 4.26-5.52 HGB (test code = 718-7) 13.4 g/dL 12.2-16.4 HCT (test code = 4544-3) 40.1 % 38.4-49.3 MCV (test code = 787-2) 83.0 fL 81.7-95.6 MCH (test code = 785-6) 27.7 pg 26.1-32.7 MCHC (test code = 786-4) 33.4 g/dL 31.2-35.0 RDW-SD (test code = 56084-4) 38.9 fL 38.5-51.6 RDW-CV (test code = 788-0) 13.0 % 12.1-15.4 PLT (test code = 777-3) 192 150-328 MPV (test code = 11056-0) 10.0 fL 9.8-13.0 NRBC/100 WBC (test code = 7293890469) 0.0 0.0-10.0 NRBC x10^3 (test code = 8400787353) See_Comment [Automated messa ge] The system which generated this result transmitted reference range: 10*3/?L. The reference range was not used to interpret this result as normal/abnormal. GRAN MAT (NEUT) % (test code = 770-8) 69.6 % IMM GRAN % (test code = 6515405317) 0.20 % LYMPH % (test code = 736-9) 16.9 % MONO % (test code = 5905-5) 13.0 % EOS % (test code = 713-8) 0.0 % BASO % (test code = 706-2) 0.3 % GRAN MAT x10^3(ANC) (test code = 0339556265) 4.00 10*3/uL 1.99-6.95 IMM GRAN x10^3 (test code = 8531477439) 0.00-0.06 LYMPH x10^3 (test code = 731-0) 0.97 10*3/uL 1.09-3.23 L MONO x10^3 (test code = 742-7) 0.75 10*3/uL 0.36-1.02 EOS x10^3 (test code = 711-2) 0.06-0.53 L BASO x10^3 (test code = 704-7) 0.01-0.09 Lab Interpretation (test code = 09824-2) Abnormal [facility] with [id number] 18:21:16* Test Item Value Reference Range Interpretation Comme nts WBC (test code = 6690-2) 7.44 4.20-10.70 RBC (test code = 789-8) 4.98 4.26-5.52 HGB (test code = 718-7) 13.8 g/dL 12.2-16.4 HCT (test code = 4544-3) 41.0 % 38.4-49.3 MCV (test code = 787-2) 82.3 fL 81.7-95.6 MCH (test code = 785-6) 27.7 pg 26.1-32.7 MCHC (test code = 786-4) 33.7 g/dL 31.2-35.0 RDW-SD (test code = 09469-5) 38.7 fL 38.5-51.6 RDW-CV (test code = 788-0) 12.9 % 12.1-15.4 PLT (test code = 777-3) 161 150-328 MPV (test code = 15664-6) 10.6 fL 9.8-13.0 NRBC/100 WBC (test code = 9556376939) 0.0 0.0-10.0 NRBC x10^3 (test code = 3384723609) See_Comment [Automated messa ge] The system which generated this result transmitted reference range: 10*3/?L. The reference range was not used to interpret this result as normal/abnormal. GRAN MAT (NEUT) % (test code = 770-8) 77.2 % IMM GRAN % (test code = 6814067183) 0.30 % LYMPH % (test code = 736-9) 10.5 % MONO % (test code = 5905-5) 11.7 % EOS % (test code = 713-8) 0.0 % BASO % (test code = 706-2) 0.3 % GRAN MAT x10^3(ANC) (test code = 7282999093) 5.75 10*3/uL 1.99-6.95 IMM GRAN x10^3 (test code = 3492358140) 0.00-0.06 LYMPH x10^3 (test code = 731-0) 0.78 10*3/uL 1.09-3.23 L MONO x10^3 (test code = 742-7) 0.87 10*3/uL 0.36-1.02 EOS x10^3 (test code = 711-2) 0.06-0.53 L BASO x10^3 (test code = 704-7) 0.01-0.09 Lab Interpretation (test code = 36065-4) Abnormal [facility] Metabolic Panel (NA, K, CL, CO2, GLUCOSE, BUN, CREATININE, CA)2024-01-05 18:12:23* Test Item Value Reference Range Interpretation Comme nts NA (test code = 0036840382) 132 mmol/L 135-145 L K (test code = 6130073143) 4.0 mmol/L 3.5-5.0 CL (test code = 2949499727) 100 mmol/L 98-108 CO2 TOTAL (test code = 7359797461) 25 mmol/L 23-31 AGAP (test code = 9807213271) 7 2-16 BUN (test code = 9229444188) 8 mg/dL 7-23 GLUCOSE (test code = 2949415572) 108 mg/dL 70-110 CREATININE (test code = 2160-0) 0.73 mg/dL 0.60-1.25 CALCIUM (test code = 8291441970) 9.0 mg/dL 8.6-10.6 eGFR (test code = 10367-6) 127.9 mL/min/1.73m2 CKD-EPI eGFR (2020). Assuming creatinine has been stable day-to-day for at least three months, the eGFR indicates Category G1 (>= 90 mL/min/1.73 m2) Lab Interpretation (test code = 47064-0) Abnormal [facility]ACT[facility] THRMPLAS [id number] 06:37:13* Test Item Value Reference Range Interpretation Comme [facility] APTT Patient (test code = 3173-2) 32 See_Comment [Automated message] The system which generated this result transmitted reference range: 23 - 38 Seconds. The reference range was not used to interpret this result as normal/abnormal. SARAH (test code = SARAH) The [facility] patient population mean normal value for aPTT is 30 seconds. Lab Interpretation (test code = 66941-4) Normal [facility] HospitalPROTHROMBIN TIME / [id number] 06:34:52* Test Item Value Reference Range Interpretation Comme [facility] PROTIME PATIENT (test code = 5964-2) 13.4 See_Comment [Automated messa ge] The system which generated this result transmitted reference range: 12.0 - 14.7 Seconds. The reference range was not used to interpret this result as normal/abnormal. INR (test code = 6301-6) 1.1 Normal INR <1.1; Warfarin Therapeutic range 2.0 to 3.0 or 2.5 to 3.5, depending upon the indications. Lab Interpretation (test code = 07444-4) Normal [facility] HospitalCOMP. METABOLIC PANEL (99933)2023-08-17 06:31:52* Test Item Value Reference Range Interpretation Comme [facility] NA (test code = 6705893831) 138 mmol/L 135-145 K (test code = 5363887401) 3.8 mmol/L 3.5-5.0 CL (test code = 3575527149) 101 mmol/L 98-108 CO2 TOTAL (test code = 5882614196) 25 mmol/L 23-31 AGAP (test code = 3245383313) 12 2-16 BUN (test code = 2963034097) 19 mg/dL 7-23 GLUCOSE (test code = 5894741568) 91 mg/dL 70-110 CREATININE (test code = 1858267443) 0.73 mg/dL 0.60-1.25 TOTAL BILI (test code = 8166494704) 0.5 mg/dL 0.1-1.1 CALCIUM (test code = 9944740218) 9.4 mg/dL 8.6-10.6 T PROTEIN (test code = 4994606148) 9.1 g/dL 6.3-8.2 H ALBUMIN (test code = 6628121168) 4.9 g/dL 3.5-5.0 ALK PHOS (test code = 4415946951) 105 U/L 34-122 ALTv (test code = 1742-6) 36 U/L 5-50 AST(SGOT) (test code = 5405346978) 35 U/L 13-40 eGFR (test code = 36336-1) 128.7 mL/min/1.73m2 CKD-EPI eGFR (2020). Assuming creatinine has been stable day-to-day for at least three months, the eGFR indicates Category G1 (>= 90 mL/min/1.73 m2) Lab Interpretation (test code = 14436-2) Abnormal [facility] HospitalLIPASE2023-[facility]-11 06:31:52* Test Item Value Reference Range Interpretation Comme nts LIPASE (test code = 4663871957) 92 U/L 0-220 Lab Interpretation (test cod e = 66126-9) Normal [facility] HospitalCB WITH [id number] 06:21:33* Test Item Value Reference Range Interpretation Comme nts WBC (test code = 6690-2) 7.44 See_Comment [[email or web address]] The system which generated this result transmitted reference range: 4.20 - 10.70 10*3/?L. The reference range was not used to interpret this result as normal/abnormal. RBC (test code = 789-8) 5.10 See_Comment [Automated [employer] The system which generated this result transmitted reference range: 4.26 - 5.52 10*6/?L. The reference range was not used to interpret this result as normal/abnormal. HGB (test code = 718-7) 14.1 g/dL 12.2-16.4 HCT (test code = 4544-3) 42.7 % 38.4-49.3 MCV (test code = 787-2) 83.7 fL 81.7-95.6 MCH (test code = 785-6) 27.6 pg 26.1-32.7 MCHC (test code = 786-4) 33.0 g/dL 31.2-35.0 RDW-SD (test code = 06653-8) 38.3 fL 38.5-51.6 L RDW-CV (test code = 788-0) 12.5 % 12.1-15.4 PLT (test code = 777-3) 222 See_Comment [Automated Safety [employer] ge] The system which generated this result transmitted reference range: 150 - 328 10*3/?L. The reference range was not used to interpret this result as normal/abnormal. MPV (test code = 08969-1) 10.4 fL 9.8-13.0 NRBC/100 WBC (test code = 1765047109) 0.0 See_Comment [Automated [employer] ssage] The system which generated this result transmitted reference range: 0.0 - 10.0 /100 WBCs. The reference range was not used to interpret this result as normal/abnormal. NRBC x10^3 (test code = 5926528897) See_Comment [Automated [employer] ge] The system which generated this result transmitted reference range: 10*3/?L. The reference range was not used to interpret this result as normal/abnormal. GRAN MAT (NEUT) % (test code = 770-8) 52.2 % IMM GRAN % (test code = 9061442659) 0.30 % LYMPH % (test code = 736-9) 31.3 % MONO % (test code = 5905-5) 8.6 % EOS % (test code = 713-8) 7.1 % BASO % (test code = 706-2) 0.5 % GRAN MAT x10^3(ANC) (test code = 1148713210) 3.88 10*3/uL 1.99-6.95 IMM GRAN x10^3 (test code = 4276090542) 0.00-0.06 LYMPH x10^3 (test code = 731-0) 2.33 10*3/uL 1.09-3.23 MONO x10^3 (test code = 742-7) 0.64 10*3/uL 0.36-1.02 EOS x10^3 (test code = 711-2) 0.53 10*3/uL 0.06-0.53 BASO x10^3 (test code = 704-7) 0.04 10*3/uL 0.01-0.09 Lab Interpretation (test code = 62696-7) Abnormal [facility] HospitalCOMP. METABOLIC PANEL (16042)2022-11-24 08:47:04* Test Item Value Reference Range Interpretation Comme nts NA (test code = 7881938556) 140 mmol/L 135-145 K (test code = 0662384517) 3.6 mmol/L 3.5-5.0 CL (test code = 6363187683) 99 mmol/L 98-108 CO2 TOTAL (test code = 2222482075) 30 mmol/L 23-31 AGAP (test code = 8392893614) 11 2-16 BUN (test code = 0225086759) 14 mg/dL 7-23 GLUCOSE (test code = 4205195526) 101 mg/dL 70-110 CREATININE (test code = 9055859163) 0.80 mg/dL 0.60-1.25 TOTAL BILI (test code = 1747578508) 0.7 mg/dL 0.1-1.1 CALCIUM (test code = 0424735021) 9.7 mg/dL 8.6-10.6 T PROTEIN (test code = 1417109478) 8.9 g/dL 6.3-8.2 H ALBUMIN (test code = 9987989061) 5.2 g/dL 3.5-5.0 H ALK PHOS (test code = 8140422388) 107 U/L 34-122 ALTv (test code = 1742-6) 28 U/L 5-50 AST(SGOT) (test code = 4681809597) 32 U/L 13-40 eGFR (test code = 8662528072) 116.9 mL/min/1.73m2 SARAH (test code = SARAH) Association of Glomerular Filtration Rate (GFR) and Staging of Kidney Disease* + --+ --+ ------+| GFR (mL/min/1.73 m2) ?| With Kidney Damage ?| ?Without Kidney Damage+ --------+ --------+ +| ?>90 ?| ?Stage one ?| ? Normal ?+ ---+ ---+ -------+| ?60-89 ?| ?Stage two ?| ? Decreased GFR ? + --+ --+ ------+| ?30-59 ?| ?Stage three ?| ? Stage three ? + --+ --+ ------+| ?15-29 ?| ?Stage four ? | ? Stage four ?+ ---+ ---+ -------+| ?<15 (or dialysis) ? ?| ?Stage five ? | ? Stage five ?+ ---+ ---+ -------+ *Each stage assumes the associated GFR level has been in effect for at least three months. ?Stages 1 to 5, with or without kidney disease, indicate chronic kidney disease. Notes: Determination of stages one and two (with eGFR >59mL/min/1.73 m2) requires estimation of kidney damage for at least three months as defined by structural or functional abnormalities of the kidney, manifested by either:Pathological abnormalities or Markers of kidney damage (including abnormalities in the composition of the blood or urine or abnormalities in imaging tests). Lab Interpretation (test code = 50121-8) Abnormal [facility] 08:46:24* Test Item Value Reference Range Interpretation Comme nts LIPASE (test code = 2184532802) 100 U/L 0-220 Lab Interpretation (test cod e = 95756-4) Normal [facility] HospitalCBC WITH [id number] 08:30:21* Test Item Value Reference Range Interpretation Comme nts WBC (test code = 6690-2) 6.46 See_Comment [[email or web address]] The system which generated this result transmitted reference range: 4.20 - 10.70 10*3/?L. The reference range was not used to interpret this result as normal/abnormal. RBC (test code = 789-8) 5.40 See_Comment [Automated [employer] The system which generated this result transmitted reference range: 4.26 - 5.52 10*6/?L. The reference range was not used to interpret this result as normal/abnormal. HGB (test code = 718-7) 14.6 g/dL 12.2-16.4 HCT (test code = 4544-3) 44.4 % 38.4-49.3 MCV (test code = 787-2) 82.2 fL 81.7-95.6 MCH (test code = 785-6) 27.0 pg 26.1-32.7 MCHC (test code = 786-4) 32.9 g/dL 31.2-35.0 RDW-SD (test code = 62132-5) 37.9 fL 38.5-51.6 L RDW-CV (test code = 788-0) 12.6 % 12.1-15.4 PLT (test code = 777-3) 221 See_Comment [Automated messa ge] The system which generated this result transmitted reference range: 150 - 328 10*3/?L. The reference range was not used to interpret this result as normal/abnormal. MPV (test code = 49182-4) 10.0 fL 9.8-13.0 NRBC/100 WBC (test code = 4946524570) 0.0 See_Comment [Automated me ssage] The system which generated this result transmitted reference range: 0.0 - 10.0 /100 WBCs. The reference range was not used to interpret this result as normal/abnormal. NRBC x10^3 (test code = 8987055794) See_Comment [Automated messa ge] The system which generated this result transmitted reference range: 10*3/?L. The reference range was not used to interpret this result as normal/abnormal. GRAN MAT (NEUT) % (test code = 770-8) 44.0 % IMM GRAN % (test code = 3123445996) 0.20 % LYMPH % (test code = 736-9) 39.9 % MONO % (test code = 5905-5) 7.7 % EOS % (test code = 713-8) 7.4 % BASO % (test code = 706-2) 0.8 % GRAN MAT x10^3(ANC) (test code = 4622750696) 2.84 10*3/uL 1.99-6.95 IMM GRAN x10^3 (test code = 2909999261) 0.00-0.06 LYMPH x10^3 (test code = 731-0) 2.58 10*3/uL 1.09-3.23 MONO x10^3 (test code = 742-7) 0.50 10*3/uL 0.36-1.02 EOS x10^3 (test code = 711-2) 0.48 10*3/uL 0.06-0.53 BASO x10^3 (test code = 704-7) 0.05 10*3/uL 0.01-0.09 Lab Interpretation (test code = 08586-6) Abnormal [facility] METABOLIC PANEL (NA, K, CL, CO2, GLUCOSE, BUN, CREATININE, CA)2021-12-13 06:45:02* Test Item Value Reference Range Interpretation Comme nts NA (test code = 3890826574) 136 mmol/L 135-145 K (test code = 9810919437) 3.7 mmol/L 3.5-5.0 CL (test code = 3318443855) 100 mmol/L 98-108 CO2 TOTAL (test code = 9636567957) 26 mmol/L 23-31 AGAP (test code = 9453457382) 2-16 BUN (test code = 8555435795) 18 mg/dL 7-23 GLUCOSE (test code = 7875398178) 100 mg/dL 70-110 CREATININE (test code = 3324222630) 0.65 mg/dL 0.60-1.25 CALCIUM (test code = 7484376120) 8.8 mg/dL 8.6-10.6 eGFR (test code = 0254574557) mL/min/1.73m2 SARAH (test code = SARAH) Association of Glomerular Filtration Rate (GFR) and Staging of Kidney Disease* + + +- +| GFR (mL/min/1.73 m2) ?| With Kidney Damage ?| ?Without Kidney Damage+ ------+ ----+ ------+| ?>90 ?| ?Stage one ?| ? Normal ?+ -+ + -+| ?60-89 ?| ?Stage two ?| ? Decreased GFR ? + + +- +| ?30-59 ?| ?Stage three ?| ? Stage three ? + + +- +| ?15-29 ?| ?Stage four ? | ? Stage four ?+ -+ + -+| ?<15 (or dialysis) ? ?| ?Stage five ? | ? Stage five ?+ -+ + -+ *Each stage assumes the associated GFR level has been in effect for at least three months. ?Stages 1 to 5, with or without kidney disease, indicate chronic kidney disease. Notes: Determination of stages one and two (with eGFR >59mL/min/1.73 m2) requires estimation of kidney damage for at least three months as defined by structural or functional abnormalities of the kidney, manifested by either:Pathological abnormalities or Markers of kidney damage (including abnormalities in the composition of the blood or urine or abnormalities in imaging tests). [facility] HospitalEBV-MONONUCLEOSIS [id number] 06:42:06* Test Item Value Reference Range Interpretation Comme nts EBV Mononucleosis Screen (te st code = 8290443987) Negative Negative Lab Interpretation (test cod e = 72463-6) Normal [facility] WITH [id number] 06:28:01* Test Item Value Reference Range Interpretation Comme nts WBC (test code = 6690-2) See_Comment [[email or web address]] The system which generated this result transmitted reference range: 4.20 - 10.70 10*3/?L. The reference range was not used to interpret this result as normal/abnormal. RBC (test code = 789-8) See_Comment [[email or web address]] The system which generated this result transmitted reference range: 4.26 - 5.52 10*6/?L. The reference range was not used to interpret this result as normal/abnormal. HGB (test code = 718-7) 13.7 g/dL 12.2-16.4 HCT (test code = 4544-3) 41.8 % 38.4-49.3 MCV (test code = 787-2) 82.1 fL 81.7-95.6 MCH (test code = 785-6) 26.9 pg 26.1-32.7 MCHC (test code = 786-4) 32.8 g/dL 31.2-35.0 RDW-SD (test code = 29129-0) 38.2 fL 38.5-51.6 L RDW-CV (test code = 788-0) 12.6 % 12.1-15.4 PLT (test code = 777-3) See_Comment [Automated messa ge] The system which generated this result transmitted reference range: 150 - 328 10*3/?L. The reference range was not used to interpret this result as normal/abnormal. MPV (test code = 68743-9) 9.9 fL 9.8-13.0 NRBC/100 WBC (test code = 2599886822) See_Comment [Automated [employer] ssage] The system which generated this result transmitted reference range: 0.0 - 10.0 /100 WBCs. The reference range was not used to interpret this result as normal/abnormal. NRBC x10^3 (test code = 3265544510) <0.01 See_Comment [Automated messa ge] The system which generated this result transmitted reference range: 10*3/?L. The reference range was not used to interpret this result as normal/abnormal. GRAN MAT (NEUT) % (test code = 770-8) 44.6 % IMM GRAN % (test code = 7646065580) 0.30 % LYMPH % (test code = 736-9) 39.2 % MONO % (test code = 5905-5) 9.3 % EOS % (test code = 713-8) 6.0 % BASO % (test code = 706-2) 0.6 % GRAN MAT x10^3(ANC) (test code = 3657679198) 3.11 10*3/uL 1.99-6.95 IMM GRAN x10^3 (test code = 3602405061) <0.03 0.00-0.06 LYMPH x10^3 (test code = 731-0) 2.73 10*3/uL 1.09-3.23 MONO x10^3 (test code = 742-7) 0.65 10*3/uL 0.36-1.02 EOS x10^3 (test code = 711-2) 0.42 10*3/uL 0.06-0.53 BASO x10^3 (test code = 704-7) 0.04 10*3/uL 0.01-0.09 Lab Interpretation (test code = 78652-6) Abnormal [facility] Notes Date/Time Note Provider Source 2024-12-06 02:03:00 PT D/C home. GCS15, VS stable. Given D/C paperwork. Pt ambulatory at time of discharge. Pt educated on med usage, follow up care, s/s worsening condition, need for hydration. Pt verbalized understanding. Pt ambulated from ED with family in NAD. Prescription x 1 given to patient TRICAL SYSTEMS ENGINEER Alessia Treadwell RN [facility] 2024-12-06 00:40:31 CC: raised rash on neck, back, bilateral arms and legs for 4 days. Patient used topical benadryl. Denies using anything new including body wash, lotion, cologne, and detergent TRICAL SYSTEMS ENGINEER Qian Fernandez RN [facility] 2024-03-30 00:12:56 Pt given verbal discharge instructions regarding chest pain. Prescriptions provided. Discussed ibuprofen and to take with food to avoid GI distress. Pt verbalized understanding of instructions, pt awake alert oriented, resp reg unlabored, skin w/d, color appropriate for race, moves all ext well,pt encouraged to follow up with pcp. Advised to seek medical attention for new/prolonged/worsening of symptoms. PIV d'cd, dressing to site, catheter in tact. Awake, alert oriented, resp reg unlabored, skin w/d, pt leaving amb with steady gait, in no apparent distress. Louann Simms RN [facility] 2024-03-29 21:37:40 Patienta arrived ambulatory c/o of left sided chest pain and sharp pains when he breathes starting Saturday. Angy Lyons RN [facility] 2024-01-07 08:07:29 Pt given printed and verbal discharge instructions regarding Febrile Illness, Pneumonia, encouraged hydration, 1 Prescriptions provided Discussed ibuprofen and to take with food to avoid GI distress. Discussed antibiotic therapy and to take until all completed unless adverse reaction occurs - if occurs, discontinue medication and follow up with pcp/seek medical attention Pt verbalized understanding of instructions, pt awake alert oriented, resp reg unlabored, skin w/d, color appropriate for race, moves all ext well,pt encouraged to follow up with pcp Advised to seek medical attention for new/prolonged/worsening of symptoms, No adverse reaction to meds given in ER noted upon discharge PIV d'cd, dressing to site, catheter in tact. Awake, alert oriented, resp reg unlabored, skin w/d, pt leaving amb with steady gait, in no apparent distress, Jessy York RN [facility] 2024-01-07 06:56:58 Report to Jessy Yusuf. Pt resting on stretcher, pending CT report. [facility] 2024-01-07 04:13:33 CC: Pt reports fever x 7 days with headache, vomiting, back pain. Pt was seen at this ER 3 days ago. Last tylenol (1 tab) at 0000, Last ibuprofen (1 tab) at 0200. Pt feels he has been taking too much tylenol/ibuprofen so not taking full dose. PMHx: none Awake, alert, oriented, resp reg unlabored, skin warm, color appropriate for race, moves all ext without difficulty, amb with hunched gait Louann May RN [facility] 2024-01-07 04:09:00 [facility] ED Transfer of Care Note. Off-going Physician:Fran Time of Transfer of Care: 7:54 AM Summary: Jenaro Seymour is a 28 year old male presenting with chief complaint of fever unknown origin. Stable, mildly elevated LFT. Pending prior to disposition: Imaging Current interventions: Medications NaCl 0.9% (NS) IV infusion 1,000 mL (0 mL Intravenous Stopped 01/07/24 0558) NaCl 0.9% (NS) IV infusion 500 mL (0 mL Intravenous Stopped 01/07/24 0700) ketorolac (TORADOL) injection 30 mg (30 mg Slow IV Push Given 01/07/24 0451) ondansetron (ZOFRAN (PF)) injection 4 mg (4 mg Slow IV Push Given 01/07/24 0452) iopamidol (ISOVUE 370-500 mL) injection 100 mL (100 mL Intravenous Given 01/07/24 0700) Results: Labs Reviewed CBC WITH DIFF - Abnormal; Notable for the following components: Result Value LYMPH x10 3 0.97 (*) EOS x10 3 <0.03 (*) All other components within normal limits COMP. METABOLIC PANEL (63556) - Abnormal; Notable for the following components: NA 131 (*) GLUCOSE 116 (*) ALK PHOS 134 (*) ALTv 69 (*) AST(SGOT) 70 (*) All other components within normal limits URINALYSIS - Abnormal; Notable for the following components: APPEARANCE Hazy (*) BLOOD 3+ (*) KETONES 20 mg/dL (*) PROTEIN 30 mg/dL (*) RBC/HPF 112 (*) MUCOUS Moderate (*) All other components within normal limits EBV-MONONUCLEOSIS SCREEN - Normal RAPID STREP SCREEN FOR GROUP A - Normal Narrative: ID NOW Strep A 2 utilizes isothermal nucleic acid amplification technology for the qualitative detection of Group A Strep bacterial nucleic acids. A positive result indicates the presence of Strep A nucleic acid. Negative results do not preclude infection with Group A Strep and should not be the sole basis of a patient treatment decision. Invalid result: Unable to generate a valid test result. A throat culture is reflexed on specimens with either an invalid or negative test result. RAPID INFLUENZA A/B - Normal Narrative: ID NOW Influenza A & B 2 is an automated multiplex assay that utilizes isothermal nucleic acid amplification technology for the differential and qualitative detection of influenza A and influenza B viral nucleic acids. ID Now Influenza A & B 2 performance depends on viral RNA load and may not correlate with cell culture performed on the same specimen. A positive result is indicative of presence of Influenza A and/or B viral RNA. A negative (Not Detected) result does not preclude influenza virus infection and should not be used as the sole basis for diagnosis, treatment or other patient management decisions. In patients with clinical symptoms, negative results should be treated as presumptive negative. Invalid: Please collect a new specimen for repeat patient testing if clinically indicated. COVID-19 (ID NOW RAPID TESTING) - Normal Narrative: ID NOW COVID-19 Assay is an isothermal nucleic acid amplification test intended for the qualitative detection of nucleic acid from SARS-CoV-2 viral RNA in nasopharyngeal (HISTORIC INTERPRETER) specimens. It is used under Emergency Use Authorization (EUA) by FDA. The limit of detection (LOD) of the assay is 125 Genome Equivalents/mL. Please note that a new specimen is requested for testing, if clinically indicated, on tests performed past validated specimen stability time. A positive result is indicative of the presence of SARS-CoV-2 RNA. Clinical correlation with patient history and other diagnostic information is necessary to determine patient infection status. A negative (Not Detected) result does not preclude SARS-CoV-2 infection. In patients with a high suspicion of SARS-CoV-2 infection, negative results should be treated as presumptive negative and a new specimen should be tested with alternative nucleic acid amplification molecular test. Indeterminate: Unable to generate a valid test result on this specimen. Please collect a new specimen for repeat testing if clinically indicated. LACTIC ACID WHOLE BLOOD - Normal BLOOD CULTURE SCREEN BLOOD CULTURE SCREEN THROAT CULTURE LAB ONLY COVID INTERPRETATION CT ABDOMEN PELVIS W CONTRAST Final Result 1. Mild infiltrate in the left lower lobe and lingula 2. Trace left pleural effusion 3. Rectum with mild thickening and mild adjacent stranding. Findings suggest proctitis. RL: 231 End of report. CHEST 1 VW Final Result No radiographic cardiopulmonary disease. RL: 5252 Additional Notes: Diagnosis/Impression as of 01/07/24 0755 Fever in adult Mild dehydration Elevated LFTs Lung infiltrate Proctitis Medical Decision Making Jenaro Seymour is a 28 year old male with fever with associated lung infiltrate. Possible PNA. No hypoxia. Mild LLQ pain. Proctitis on CT. Will rx Augmentin. Stable. Return precautions given if symptoms worsen as documented in the discharge instructions. Problems Addressed: Elevated LFTs: acute illness or injury Fever in adult: acute illness or injury Lung infiltrate: acute illness or injury Mild dehydration: acute illness or injury Proctitis: acute illness or injury Amount and/or Complexity of Data Reviewed Labs: ordered. Radiology: ordered. Risk Prescription drug management. Disposition: Discharged Home Social Determinants of Health: none. Diagnoses that have been ruled out: None Diagnoses that are still under consideration: None Final diagnoses: Fever in adult Mild dehydration Elevated LFTs Lung infiltrate Proctitis ED Disposition ED Disposition Disch - Home Condition Stable Comment -- Contact information for follow-up Cristiane Barajas MD Specialty: IM-GASTROENTEROLOGY [facility] [id number] [facility] [id number] Instructions: For follow up of the presenting symptoms. [facility]-Emergency Department Specialty: Emergency Medicine [address] [facility] [address] Instructions: If symptoms worsen as documented in the discharge [facility]: [facility] Medicine [address], [address] [facility] [address] Instructions: for follow up of your emergency visit. Vicente Henderson DO 01/07/24 0756 [facility] 2024-01-05 13:52:22 Pt given printed and verbal discharge instructions regarding febrile illness, encouraged hydration, NO Prescriptions provided - Encouraged OTC Tylenol and Ibuprofen for fever and symptoms. Discussed ibuprofen and to take with food to avoid GI distress. Pt verbalized understanding of instructions, pt awake alert oriented, resp reg unlabored, skin w/d, color appropriate for race, moves all ext well,pt encouraged to follow up with pcp Advised to seek medical attention for new/prolonged/worsening of symptoms, No adverse reaction to meds given in ER noted upon discharge PIV d'cd, dressing to site, catheter in tact. Awake, alert oriented, resp reg unlabored, skin w/d, pt leaving amb with steady gait, in no apparent distress, Jessy York RN [facility] 2024-01-05 11:59:57 Pt arrived via private car with c/o fever since Saturday and generalized body aches and a headache. Last medicated with Advil at 0600. Denies a cough. 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 Also has headache, myalgia. Has nausea. No vomiting. No cough or congestion. No runny noise or congestion. No sore throat. Denies any abdominal pain. Denies any urinary symptoms. Spouse has URI symptoms X 5 days. No travel hx. Had temp up to 103 axillary. No neck stiffness/pain. No rash. No travel hx. No trauma. No sore throat. No abdominal pain or discomfort. 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 Fever Max temp prior to arrival: 103 Temp source: Axillary Severity: Moderate Onset quality: Gradual Duration: 4 days Timing: Sporadic Chronicity: New Relieved by: Ibuprofen and acetaminophen Worsened by: Nothing Associated symptoms: chills, headaches, myalgias and nausea Associated symptoms: no chest pain, no confusion, no congestion, no cough, no diarrhea, no dysuria, no ear pain, no rash, no rhinorrhea, no somnolence, no sore throat and no vomiting Risk factors: sick contacts Risk factors: no contaminated food, no contaminated water, no hx of cancer, no immunosuppression, no occupational exposure, no recent sickness and no recent travel Past Medical History/Immunizations: Seasonal Allergies Covid-19 X 3 in the past Tetanus received in last 5 years: Unknown Allergies: No Known Allergies Past Social History: Substance & Sexual Activity No substance use or sexual activity history on file. Past Surgical History: None Review of Systems: Review of Systems Constitutional: Positive for chills and fever. HENT: Negative. Negative for congestion, ear pain, rhinorrhea and sore throat. Eyes: Negative. Respiratory: Negative. Negative for cough. Breasts: Negative. Cardiovascular: Negative. Negative for chest pain. Gastrointestinal: Positive for nausea. Negative for abdominal distention, abdominal pain, diarrhea and vomiting. Genitourinary: Negative. Negative for dysuria. Musculoskeletal: Positive for myalgias. Negative for neck pain and neck stiffness. Skin: Negative. Negative for rash. Neurological: Positive for headaches. Negative for dizziness, tremors, seizures, syncope, facial asymmetry, speech difficulty, weakness, light-headedness and numbness. Psychiatric/Behavioral: Negative. Negative for confusion. All other systems reviewed and are negative. Endocrine: Endocrine negative Physical Exam: ED Triage Vitals [01/05/24 1200] Weight 56.7 kg (125 lb) Actual or estimated Estimated by patient/family report Height 1.6 m (5' 3") BP 120/90 Pulse 121 Resp 18 Temp 38.3 ?C (100.9 ?F) Temp source Oral SpO2 100 % Measured on Room air Physical Exam Vitals and nursing note reviewed. Constitutional: General: He is not in acute distress. Appearance: Normal appearance. He is well-developed and normal weight. He is not ill-appearing, toxic-appearing or diaphoretic. HENT: Head: Normocephalic and atraumatic. Nose: Nose normal. No congestion or rhinorrhea. Mouth/Throat: Mouth: Mucous membranes are moist. Pharynx: Oropharynx is clear. Eyes: General: No scleral icterus. Right eye: No discharge. Left eye: No discharge. Extraocular Movements: Extraocular movements intact. Conjunctiva/sclera: Conjunctivae normal. Pupils: Pupils are equal, round, and reactive to light. Cardiovascular: Rate and Rhythm: Regular rhythm. Tachycardia present. Pulses: Normal pulses. Heart sounds: Normal heart sounds. No murmur heard. Pulmonary: Effort: Pulmonary effort is normal. No respiratory distress. Breath sounds: Normal breath sounds. No stridor. No wheezing, rhonchi or rales. Chest: Chest wall: No tenderness. Abdominal: General: Bowel sounds are normal. There is no distension. Palpations: Abdomen is soft. There is no mass. Tenderness: There is no abdominal tenderness. There is no right CVA tenderness, left CVA tenderness, guarding or rebound. Hernia: No hernia is present. Musculoskeletal: General: No swelling, tenderness, deformity or signs of injury. Normal range of motion. Cervical back: Normal range of motion and neck supple. No rigidity or tenderness. Right lower leg: No edema. Left lower leg: No edema. Lymphadenopathy: Cervical: No cervical adenopathy. Skin: General: Skin is warm and dry. Capillary Refill: Capillary refill takes less than 2 seconds. Coloration: Skin is not jaundiced or pale. Findings: No bruising, erythema, lesion or rash. Neurological: Mental Status: He is alert and oriented to person, place, and time. Cranial Nerves: No cranial nerve deficit. Sensory: No sensory deficit. Motor: No weakness. Coordination: Coordination normal. Gait: Gait normal. Deep Tendon Reflexes: Reflexes normal. Psychiatric: Mood and Affect: Mood normal. Behavior: Behavior normal. Thought Content: Thought content normal. Judgment: Judgment normal. Radiology: No orders to display Lab Results: Lab Results CBC WITH DIFF - Abnormal Result Value Ref Range WBC 7.44 4.20 - 10.70 10*3/?L RBC 4.98 4.26 - 5.52 10*6/?L HGB 13.8 12.2 - 16.4 g/dL HCT 41.0 38.4 - 49.3 % MCV 82.3 81.7 - 95.6 fL MCH 27.7 26.1 - 32.7 pg MCHC 33.7 31.2 - 35.0 g/dL RDW-SD 38.7 38.5 - 51.6 fL RDW-CV 12.9 12.1 - 15.4 % PLT 161 150 - 328 10*3/?L MPV 10.6 9.8 - 13.0 fL NRBC/100 WBC 0.0 0.0 - 10.0 /100 WBCs NRBC x10 3 <0.01 10*3/?L GRAN MAT (NEUT) % 77.2 % IMM GRAN % 0.30 % LYMPH % 10.5 % MONO % 11.7 % EOS % 0.0 % BASO % 0.3 % GRAN MAT x10 3 (ANC) 5.75 1.99 - 6.95 10*3/uL IMM GRAN x10 3 <0.03 0.00 - 0.06 10*3/uL LYMPH x10 3 0.78 (*) 1.09 - 3.23 10*3/uL MONO x10 3 0.87 0.36 - 1.02 10*3/uL EOS x10 3 <0.03 (*) 0.06 - 0.53 10*3/uL BASO x10 3 <0.03 0.01 - 0.09 10*3/uL BASIC METABOLIC PANEL (NA, K, CL, CO2, GLUCOSE, BUN, CREATININE, CA) - Abnormal NA 132 (*) 135 - 145 mmol/L K 4.0 3.5 - 5.0 mmol/L CL 100 98 - 108 mmol/L CO2 TOTAL 25 23 - 31 mmol/L AGAP 7 2 - 16 BUN 8 7 - 23 mg/dL GLUCOSE 108 70 - 110 mg/dL CREATININE 0.73 0.60 - 1.25 mg/dL CALCIUM 9.0 8.6 - 10.6 mg/dL eGFR 127.9 mL/min/1.73m2 COVID-19 (ID NOW RAPID TESTING) - Normal SARS-CoV-2 Rapid ID NOW Not Detected Not Detected RAPID INFLUENZA A/B - Normal Rapid Influenza A Negative Negative Rapid Influenza B Negative Negative Orders and Treatments: Orders Placed This Encounter Procedures COVID-19 (ID NOW TESTING) RAPID INFLUENZA A/B Cbc with Diff Basic Metabolic Panel (NA, K, CL, CO2, GLUCOSE, BUN, CREATININE, CA) Lab Only COVID Interpretation Orders Placed This Encounter Medications acetaminophen (TYLENOL) tablet 1,000 mg NaCl 0.9% (NS) IV infusion 1,000 mL First Provider Eval: ED Events Date/Time Event User Comments 01/05/24 1201 Medical Screening Begins HEATHER PETERS MD -- 01/05/24 1201 First Provider Evaluation HEATHER PETERS MD -- ED COURSE Diagnosis/Impression as of 01/05/24 1351 Fever in adult Acute febrile illness Mild dehydration Procedures: Procedures MDM: Medical Decision Making Jenaro Seymour is a 28 year old male with no significant PMH who presents to the ED for evaluation of fever, headache and myalgia Problems Addressed: Acute febrile illness: acute illness or injury Details: ED evaluation and work-up as documented Will treat symptomatically Pt DECLINES any prescription rx and only wants work-excuse to return to work Mild dehydration: acute illness or injury Details: Pt rehydrated in ED Repeat HR 98 BPM at discharge re-examination by me Encouraged po fluid intake Amount and/or Complexity of Data Reviewed Independent Historian: spouse Labs: ordered. Decision-making details documented in ED Course. Risk OTC drugs. Prescription drug management. Flowsheet Documentation: 1:39 PM Pt re-examined. Re[ports he feels 100% improved. Headache has resolved Repeat HR 98 BPM Pt DECLINED analgesic prescription and reports that he will use OTC Tylenol/Motrin Discussed return p[precautions and need for close follow-up Scoring Tools: No data recorded Disposition/Condition: ED Disposition ED Disposition Disch - Home Condition Stable Comment -- Discharge Medications: Patient's Medications START taking these medications No medications on file CONTINUE taking these medications which have NOT CHANGED CLOTRIMAZOLE (LOTRIMIN AF, CLOTRIMAZOLE,) 1 % TOPICAL CREAM Apply to area(s) at bedtime. DICYCLOMINE 20 MG TABLET Take 1 tablet by mouth 4 (four) times daily. DOCUSATE SODIUM 250 MG CAPSULE Take 1 capsule by mouth in the morning. IBUPROFEN 800 MG TABLET Take 1 tablet by mouth every 6 (six) hours as needed for Pain (scale 4-6). ONDANSETRON 4 MG DISINTEGRATING TABLET Take 1 tablet by mouth every 4 (four) hours as needed for Nausea and Vomiting (N/V). POLYETHYLENE GLYCOL 3350 (MIRALAX) 17 GRAM POWDER Take 1 Packet by mouth every 24 (twenty-four) hours as needed for Constipation. START taking Modified Medications as Prescribed No medications on file STOP taking these medications No medications on file Follow-up: Electronically signed by: Heather Peters MD 01/05/24 1351 [facility]
[2025-02-03 05:25] LABS: Absolute Eosinophils 0.1 K/uL (0-0.5); Absolute Lymphocytes (CBC) 1.6 K/uL (0.7-4.9); Absolute Monocytes 0.8 K/uL (0.1-1.3); Absolute Neutrophil 4.4 K/uL (1.8-8.0); Basophils % 0.5 % (0-1.3); Eosinophils % 1.9 % (0-4.4); Hematocrit 40.7 % (39.6-49.0); Lymphocytes % 23.2 % (15.3-44.8); MCH 28.1 pg (27.0-35.0); MCHC 34.5 g/dL (32.0-36.0); MCV 81.6 fL (80-100); MPV 8.8 fL (7.6-11.3); Monocytes % 11.2 % (3.3-12.3); Neutrophils % 63.2 % (41.7-73.7); Nucleated Red Blood Cells % 0.1 % (0-0); Platelets 216 thou/uL (152-406); RBC Red Blood Cell Count 4.99 M/uL (4.33-5.43); Red Cell Distribution Width 13.7 % (12.1-15.2)
[2025-02-03 05:34] LABS: Specific Gravity 1.025 (1.005-1.030); Sqamous Epithelial None Seen /HPF (None Seen); Urine Bacteria <20 /HPF (<20); Urine Bilirubin NEGATIVE (Negative); Urine Blood 2+ (Negative); Urine Clarity Clear (Clear); Urine Color Light-Yellow (Yellow); Urine Glucose NEGATIVE (Negative); Urine Ketones NEGATIVE (Negative); Urine Micro Reflex YN NO BILL MICROSCOPIC; Urine Mucus Slight /HPF (None Seen); Urine Nitrite NEGATIVE (Negative); Urine Protein NEGATIVE (Negative); Urine RBC 21-50 /HPF (None Seen); Urine Urobilinogen Normal (Normal); Urine WBC <5 /HPF (<5); Urine pH 6.5 (5.0-7.0)
[2025-02-03] MEDS ORDERED: KETOROLAC 30 MG/ML INJ ONE (05:43)
[2025-02-03 05:49] LABS: Albumin 4.1 g/dL (3.4-5.0); Anion Gap 7.4 mEq/L (5.0-15.0); Bilirubin Total 0.4 mg/dL (0.2-1.0); Globulin 4.1 g/dL (2.3-3.5); Potassium 3.4 mEq/L (3.5-5.1); Protein, Total 8.2 g/dL (6.4-8.2)
--- NOTE | 2025-02-03 06:08 | RAD REPORT ---
EXAMINATION: Abdomen Pelvis Wo Contrast CLINICAL INDICATION: Male, 29 years old.ABD PAIN TECHNIQUE: CT abdomen and pelvis was performed, without IV contrast, as per department protocol. Axia l, sagittal and coronal reconstructions were obtained. One or more of the following dose reduction techniques were used: Automated exposure control, adjustment of the mA and/or kV according to the pat ient size, and/or iterative reconstruction. Unless otherwise specified, incidental findings do not require dedicated imaging follow-up. [id number]. IV CONTRAST: Not administered. COMPARISON: None FINDINGS: The lack of intravenous contrast limits the sensitivity of this exam for evaluation of solid visceral organs, vascular structures, and retroperitoneum. LOWER CHEST: No acute process identified.No significant pericardial effusion. UPPER GI: No significant abnormality. LIVER: No significant focal abnormality. GALLBLADDER/BILE DUCTS: No biliary ductal dilatation.? PANCREAS: No mass, ductal dilation, or molly-pancreatic fluid. SPLEEN: Unremarkable. ADRENALS: No adrenal masses. KIDNEYS AND URETERS: No hydronephrosis.Limited evaluation for renal lesions in the absence of IV cont rast. ABDOMINAL AORTA AND OTHER VESSELS: Normal caliber aorta and IVC. PERITONEUM: No abnormal free fluid. No free air. LYMPH NODES: No pathologic lymphadenopathy. ABDOMINAL WALL: Unremarkable SMALL BOWEL/COLON: Small bowel has normal course and caliber. No colonic wall thickening or pericolon ic inflammatory changes.Normal appendix. URINARY BLADDER: Underdistended but grossly unremarkable. REPRODUCTIVE ORGANS: No pathologic process. MUSCULOSKELETAL: No acute or suspicious osseous abnormality. ADDITIONAL FINDINGS: None. IMPRESSION: No acute findings within the abdomen or pelvis. No appendicitis.
--- NOTE | 2025-02-03 06:29 | EDPHYS ---
Physician Documentation [facility] Name: Jenaro Smith Age: 29 yrs Sex: Male : 1995 Arrival Date: 02/03/2025 Time: 03:33 Bed DX3 Private MD: ED Physician Jeronimo Chatman HPI: 02/03 03:48 This 29 yrs old Male presents to ER via Ambulatory with complaints of Pain sp4 With Urination, [place] with urination. 21:31 Patient presents with complaint of pelvic pain and burning with urination. Also sp4 presents with intermittent decreased urine flow.. Historical: - Allergies: 03:48 No Known Allergies; vc1 - Home Meds: 03:48 None [Active]; vc1 - PMHx: 03:48 None; vc1 - PSHx: 03:48 None; vc1 - Immunization history:: Client reports receiving the 2nd dose of the Covid vaccine, Flu vaccine is up to date. - Infectious Disease History:: Denies. - Social history:: Smoking status: Patient denies any tobacco usage or history of. - Family history:: not pertinent. ROS: 21:31 Constitutional: Negative for fever, chills, and weight loss, positive for dysuria sp4 positive for bladder pain 21:31 All other systems are negative, Exam: 21:31 Constitutional: This is a well developed, well nourished patient who is awake, alert, sp4 and in no acute distress. Head/Face: Normocephalic, atraumatic. Eyes: Pupils equal round and reactive to light, extra-ocular motions intact. Lids and lashes normal. Conjunctiva and sclera are not injected. Cornea within normal limits. Periorbital areas with no swelling, redness, or edema. ENT: Nares patent. No nasal discharge, no septal abnormalities noted. Tympanic membranes are normal and external auditory canals are clear. Oropharynx with no redness, swelling, or masses, exudates, or evidence of obstruction, uvula midline. Mucous membranes moist. Neck: Trachea midline, no thyromegaly or masses palpated, and no cervical lymphadenopathy. Supple, full range of motion without nuchal rigidity, or vertebral point tenderness. Chest/axilla: Normal chest wall appearance and motion. Nontender with no deformity. No lesions are appreciated. Cardiovascular: Regular rate and rhythm with a normal S1 and S2. No gallops, murmurs, or rubs. Normal PMI, no JVD. No pulse deficits. Respiratory: Lungs have equal breath sounds bilaterally, clear to auscultation and percussion. No rales, rhonchi or wheezes noted. No increased work of breathing, no retractions or nasal flaring. Abdomen/GI: Soft, with normal bowel sounds. No distension or tympany. No guarding or rebound. No evidence of tenderness throughout. Back: No spinal tenderness. No costovertebral tenderness. Male : Normal genitalia with no discharge or lesions. No inguinal hernias, circumcised male, no scrotal tenderness, no masses, overall normal exam Skin: Warm, dry with normal turgor. Normal color with no rashes, no lesions, and no evidence of cellulitis. MS/ Extremity: Pulses equal, no cyanosis. Neurovascular intact. Full, normal range of motion. Neuro: Awake and alert, GCS 15, oriented to person, place, time, and situation. Cranial nerves II-XII grossly intact. Motor strength 5/5 in all extremities. Sensory grossly intact. Psych: Awake, alert, with orientation to person, place and time. Behavior, mood, and affect are within normal limits Vital Signs: 03:46 Weight 65.77 kg; Pain 5/10; vc1 03:49 BP 134 / 93; Pulse 99; Resp 16; Temp 98.4; Pulse Ox 97% ; vc1 03:46 Pain Scale: Adult vc1 [place] Coma Score: 21:31 Eye Response: spontaneous(4). Motor Response: obeys commands(6). Verbal Response: sp4 oriented(5). Total: 15. MDM: 03:48 Medical Screening Exam initiated sp4 06:25 ED course: EXAMINATION: Abdomen Pelvis Wo Contrast CLINICAL INDICATION: Male, 29 years sp4 old.ABD PAIN TECHNIQUE: CT abdomen and pelvis was performed, without IV contrast, as per department protocol. Axial, sagittal and coronal reconstructions were obtained. One or more of the following dose reduc tion techniques were used: Automated exposure control, adjustment of the mA and/or kV according to the patient size, and/or iterative reconstruction. Unless otherwise specified, incidental findings do not require dedicated imaging follow-up. [id number]. IV CONTRAST: Not administered. COMPARISON: None FINDINGS: The lack of intravenous contrast limits the sensitivity of this exam for evaluation of solid visceral organs, vascular structures, and retroperitoneum. LOWER CHEST: No acute process identified.No significant pericardial effusion. UPPER GI: No significant abnormality. LIVER: No significant focal abnormality. GALLBLADDER/BILE DUCTS: No biliary ductal dilatation.? PANCREAS: No mass, ductal dilation, or molly-pancreatic fluid. SPLEEN: Unremarkable. ADRENALS: No adrenal masses. KIDNEYS AND URETERS: No hydronephrosis.Limited evaluation for renal lesions in the absence of IV contrast. ABDOMINAL AORTA AND OTHER VESSELS: Normal caliber aorta and IVC. PERITONEUM: No abnormal free fluid. No free air. LYMPH NODES: No pathologic lymphadenopathy. ABDOMINAL WALL: Unremarkable SMALL BOWEL/COLON: Small bowel has normal course and caliber. No colonic wall thickening or pericolonic inflammatory changes.Normal appendix. URINARYBLADDER: Underdistended but grossly unremarkable. REPRODUCTIVE ORGANS: No pathologic process. MUSCULOSKELETAL: No acute or suspicious osseous abnormality. ADDITIONAL FINDINGS: None. IMPRESSION: No acute findings within the abdomen or pelvis. No appendicitis.. 21:33 Differential diagnosis: nonspecific abdominal pain, UTI, urinary retention, sp4 prostatitis, urethritis. Data reviewed: vital signs, nurses notes, lab test result(s), radiologic studies, CT scan. Consideration of Admission/Observation Escalation of care including admission/observation considered. 02/03 03:48 Order name: Urinalysis W/Microscopic; Complete Time: 06:14 sp4 02/03 04:26 Order name: CBC with Diff; Complete Time: 06:14 sp4 02/03 04:26 Order name: CMP; Complete Time: 06:14 sp4 02/03 04:26 Order name: CT Abd/Pelvis - Without Contrast; Complete Time: 06:14 sp4 02/03 04:26 Order name: IV Saline Lock; Complete Time: 05:13 sp4 02/03 04:26 Order name: Labs collected and sent; Complete Time: 05:13 sp4 Administered Medications: 05:45 Drug: TORadol - Ketorolac IVP 15 mg IVP once Route: IVP; Site: right antecubital; al5 06:37 Follow up: Response: No adverse reaction; Marked relief of symptoms; Pain is decreased vc1 Disposition Summary: 02/03/25 06:28 Discharge Ordered Problem: new sp4 Symptoms: have improved sp4 Condition: Stable sp4 Diagnosis - Hematuria, unspecified sp4 - Macroscopic hematuria, acute dysuria, acute pelvic pain sp4 Followup: sp4 - With: Nick Espinosa DO - When: 7 - 10 days - Reason: Recheck today's complaints Discharge Instructions: - Discharge Summary Sheet sp4 - Hematuria, Adult sp4 Forms: - Patient Portal Instructions sp4 Signatures: Dispatcher [employer] Isha Luis RN RN vc1 Jeronimo Chatman MD MD sp4 Louann Santos RN RN al5
--- NOTE | 2025-02-03 06:29 | ER ---
Nurse's Notes [facility] Name: Jenaro Smith Age: 29 yrs Sex: Male : 1995 Arrival Date: 02/03/2025 Time: 03:33 Bed DX3 Private MD: Diagnosis: Hematuria, unspecified;Macroscopic hematuria, acute dysuria, acute pelvic pain Presentation: 02/03 03:46 Chief complaint: Patient states: 2 days ago I went to because when I pee it hurts vc1 and pulses out and my lower stomach hurts. Coronavirus screen: Client denies travel out of the [place] in the last 14 days. At this time, the client does not indicate any symptoms associated with coronavirus-19. Ebola Screen: Patient negative for fever greater than or equal to 101.5 degrees Fahrenheit, and additional compatible Ebola Virus Disease symptoms Patient denies exposure to infectious person. Patient denies travel to an Ebola-affected area in the 21 days before illness onset. No symptoms or risks identified at this time. Initial Sepsis Screen: Does the patient meet any 2 criteria? No. Patient's initial sepsis screen is negative. Does the patient have a suspected source of infection? No. Patient's initial sepsis screen is negative. Risk Assessment: Do you want to hurt yourself or someone else? Patient reports no desire to harm self or others. Onset of symptoms was January 30, 2025. 03:46 Method Of Arrival: Ambulatory vc1 03:46 Acuity: CHARAN 3 vc1 Triage Assessment: 03:52 General: Appears in no apparent distress. uncomfortable, slender, well groomed, well vc1 developed, well nourished, Behavior is calm, cooperative, appropriate for age. Pain: Complains of pain in right lower quadrant, left lower quadrant, meatus and suprapubic area Pain does not radiate. Pain currently is 5 out of 10 on a pain scale. Quality of pain is described as burning, sharp. EENT: No deficits noted. No signs and/or symptoms were reported regarding the EENT system. Neuro: Level of Consciousness is awake, alert, obeys commands, Oriented to person, place, time, situation, Appropriate for age. Cardiovascular: Heart tones S1 S2 present Capillary refill < 3 seconds Patient's skin is warm and dry. Respiratory: Airway is patent Respiratory effort is even, unlabored, Respiratory pattern is regular, symmetrical, Breath sounds are clear bilaterally. GI: No deficits noted. No signs and/or symptoms were reported involving the gastrointestinal system. : Reports burning with urination, pain in right in left in suprapubic area lower quadrant(s) with urination, Pain is 5 out of 10 on a pain scale. Historical: - Allergies: 03:48 No Known Allergies; vc1 - Home Meds: 03:48 None [Active]; vc1 - PMHx: 03:48 None; vc1 - PSHx: 03:48 None; vc1 - Immunization history:: Client reports receiving the 2nd dose of the Covid vaccine, Flu vaccine is up to date. - Infectious Disease History:: Denies. - Social history:: Smoking status: Patient denies any tobacco usage or history of. - Family history:: not pertinent. Screenin:49 [facility] ED Fall Risk Assessment (Adult) History of falling in the last 3 months, vc1 including since admission No falls in past 3 months (0 pts) Confusion or Disorientation No (0 pts) Intoxicated or Sedated No (0 pts) Impaired Gait No (0 pts) Mobility Assist Device Used No (0 pt) Altered Elimination No (0 pt) Score/Fall Risk Level 0 - 2 = Low Risk Oriented to surroundings, Maintained a safe environment, Educated pt \T\ family on fall prevention, incl call for assistance when getting out of bed, Hourly rounding (assess needs \T\ fall precautionary measures) done. Abuse screen: Denies threats or abuse. Nutritional screening: No deficits noted. Tuberculosis screening: No symptoms or risk factors identified. Assessment: 04:01 General: See triage assessment. vc1 06:38 Reassessment: Patient appears in no apparent distress at this time. Patient and/or vc1 family updated on plan of care and expected duration. Pain level reassessed. Patient is alert, oriented x 3, equal unlabored respirations, skin warm/dry/pink. Patient states feeling better. Vital Signs: 03:46 Weight 65.77 kg; Pain 5/10; vc1 03:49 BP 134 / 93; Pulse 99; Resp 16; Temp 98.4; Pulse Ox 97% ; vc1 03:46 Pain Scale: Adult vc1 [place] Coma Score: 21:31 Eye Response: spontaneous(4). Motor Response: obeys commands(6). Verbal Response: sp4 oriented(5). Total: 15. ED Course: 03:37 Patient arrived in ED. gm2 03:48 Jeroniom Chatman MD is Attending Physician. sp4 03:48 Triage completed. vc1 03:49 Arm band placed on right wrist. vc1 03:54 Patient has correct armband on for positive identification. Provided Education on: plan vc1 of care. 04:01 Urine collected: clean catch specimen, isidro colored. vc1 04:01 Urinalysis W/Microscopic Sent. vc1 04:55 CT Abd/Pelvis - Without Contrast In Process Unspecified. EDMS 05:07 Initial lab(s) drawn, by me, sent to lab. Inserted saline lock: 20 gauge in right vk antecubital area, using aseptic technique. Blood collected. Flushed with 10 mL NS. 05:13 CBC with Diff Sent. vk 05:13 CMP Sent. vk 05:14 Urinalysis W/Microscopic Sent. vk 06:27 Nick Espinosa DO is Referral Physician. sp4 06:38 Isha Mendez, JAJA is Primary Nurse. vc1 06:38 No provider procedures requiring assistance completed. IV discontinued, intact, vc1 bleeding controlled, No redness/swelling at site. Pressure dressing applied. Administered Medications: 05:45 Drug: TORadol - Ketorolac IVP 15 mg IVP once Route: IVP; Site: right antecubital; al5 06:37 Follow up: Response: No adverse reaction; Marked relief of symptoms; Pain is decreased vc1 Medication: 03:49 VIS not applicable for this client. vc1 Outcome: 06:28 Discharge ordered by . sp4 06:38 Discharged to home ambulatory, vc1 06:38 Condition: good 06:38 Discharge instructions given to patient, Instructed on discharge instructions, follow up and referral plans. Demonstrated understanding of instructions, follow-up care, 06:38 Patient left the ED. vc1 Signatures: Dispatcher [employer] EDMS Isha Mendez, JAJA RN vc1 Jeronimo Chatman MD MD sp4 Krista Ley 2 Isis Wisdom Amanda RN RN al5
[2025-02-03 11:36] VITALS: BP 134/93; TEMP 98.4; O2SAT 97
== END 2025-02-03 06:38 | disposition home or self-care (01) ==
LOC: ER 03:33
DX: R31.29 Other microscopic hematuria (principal); R30.0 Dysuria; R10.2 Pelvic and perineal pain
CPT/HCPCS: 36415; 74176; 80053; 81001; 85025